=== PATIENT | female | born 1940 | race Caucasian/White ===

== ENCOUNTER 2017-09-01 19:26 | Inpatient (IN) | payer BC ==
[~2017-09-01] VITALS: Ht 157.5 cm; Wt 58.3 kg
[2017-09-01 19:56] VITALS: BP 167/99; PULSE 110; RESP 20; TEMP 97.9; O2SAT 99
[2017-09-01] MEDS ORDERED: APIX5TAB PO (20:00)
[2017-09-01] MEDS ORDERED: ALPR0.25 PO (20:00)
[2017-09-01] MEDS ORDERED: NORC5TAB PO (20:00)
[2017-09-01] MEDS ORDERED: CARV12.52 PO (20:00)
[2017-09-01] MEDS ORDERED: LEVO75TA3 PO (20:00)
--- NOTE | 2017-09-01 20:10 | PD ---
HPI Chief Complaint: Fall Time Seen by Provider: 20:04 Travel History International Travel<30 days: No Contact w/Intl Traveler<30days: No Traveled to known affect area: No History of Present Illness HPI The patient is a 77 year old female who presents to the [facility] emergency department with a history of reportedly falling prior to arrival at a local restaurant. The patient tripped on the andrea. The patient does not recall falling. The patient did have a few second loss of consciousness that was witnessed. The patient was briefly confused after hitting her head. The patient now reports having a headache and is developing ecchymosis around the left eye. The patient has a laceration above the left side of the upper lip. The patient also reports having left elbow pain and chest pain. The patient reports that the chest pain is in the center of her chest and is worse with movement or taking a deep breath. She denies hitting her chest. She denies having any chest pain earlier today. She denies having any prior history of coronary artery disease, however she does have a history of atrial fibrillation and is anticoagulated on Eliquis. The patient is visiting from [place]. She denies having any neck pain, numbness or tingling to her extremities or weakness of her extremities. On review of systems otherwise, she denies having any known recent fevers, cough or congestion, cough, congestion, shortness of breath, abdominal pain, vomiting, diarrhea, urinary symptoms, or other neurologic symptoms. [facility] Past Medical History Narrative Medical The patient's past medical history is significant for having diabetes in her past, however she reports that approximately 7 years ago she had a gastric sleeve Padmini significant weight loss which resolved with diabetes, history of hypertension, hyperlipidemia, atrial fibrillation, arthritis, and hypothyroid disorder. Hx Anticoagulant Therapy: Yes Cardiovascular Problems: Yes Past Surgical History Narrative Surgical The patient's past surgical history is significant for gastric sleeve, history of right hip replacement 3 months ago, history of left knee replacement. Social History Alcohol Use: No Tobacco Use: No Substance Use: No Allergies-Medications (Allergen,Severity, Reaction): Coded Allergies: Penicillins (Verified Allergy, Unknown, 09/01/17) erythromycin base (Verified Allergy, Unknown, 09/01/17) tetracycline (Verified Allergy, Unknown, 09/01/17) Reported Meds & Prescriptions Reported Meds & Active Scripts Active Reported Levothyroxine (Levothyroxine Sodium) 75 Mcg Tab 75 Mcg PO DAILY [place] 5-325 Tablet (Hydrocodone/Acetaminophen) 5 Mg-325 Mg Tablet 1 Tab PO BID Alprazolam 0.25 Mg Tab 0.25 Mg PO Q4H PRN Eliquis (Apixaban) 5 Mg Tab 5 Mg PO BID Carvedilol 12.5 Mg Tab 12.5 Mg PO DAILY Review of Systems Except as stated in HPI: all other systems reviewed are Neg General / Constitutional: No: Fever Eyes: No: Visual changes HENT: No: Headaches Cardiovascular: Positive: Chest Pain or Discomfort Respiratory: No: Cough, Shortness of Breath Gastrointestinal: No: Nausea, Vomiting, Diarrhea, Abdominal Pain Genitourinary: No: Dysuria Musculoskeletal: Positive: Myalgias, Arthralgias, Pain Skin: No Rash Neurologic: No: Weakness Psychiatric: No: Depression Endocrine: No: Polydipsia Hematologic/Lymphatic: No: Easy Bruising Physical Exam Narrative General: The patient is a well-developed well-nourished female in no acute distress. The patient is brought in on a back board in full c-spine immobilization by emergency services. Head and Neck exam: Head is normocephalic, evidence of trauma with periorbital ecchymosis and swelling noted. Patient reports tenderness on palpation along the superior orbital ridge. The patient also has an approximately 2 cm laceration along the upper lip on the left side. No increased facial bone mobility noted on palpation. Eyes: EOMI, pupils are equal round and reactive to light. Nose: Midline septum with pink mucous membranes Mouth: Dentition unremarkable. The patient is noted to have a through and through laceration with a small opening well approximated and the inner lip buccal mucosa left side that is approximately 1 cm. Moist mucus membranes. Posterior oropharynx is not erythematous. No tonsillar hypertrophy. Uvula midline. Airway patent. Neck: The patient is immobilized in a cervical collar. No tracheal deviation. The trachea appears midline. Cardiovascular: Irregularly irregular with rate control in the 80s, no murmurs, gallops, or rubs. Lungs: Clear to auscultation bilaterally. No wheezes, rhonchi, or rales. No chest wall tenderness to palpation. No erythema or ecchymosis noted. No crepitus , step off, or flail segment noted. Abdomen: Soft, without tenderness to palpation in all 4 quadrants of the abdomen. No guarding, rebound, or rigidity. No erythema or ecchymosis noted. Extremities: No instability or pain noted on pelvic rock. No clubbing, cyanosis , or edema. 2+ pulses in all 4 extremities. No extremity tenderness or deformity noted on palpation or passive/ active range of motion except in the area of interest, the left upper extremity. The patient reports pain with any attempt at flexion or extension of the left elbow. There is no palpable deformity or crepitus. Patient also has superficial pain that she reports along the dorsal forearm and hand where she has small superficial abrasions and lacerations noted. Back: The patient was log rolled off of the back board. No spinous process tenderness to palpation. No stepoff or crepitus noted. No costovertebral angle tenderness to palpation. No erythema or ecchymosis. Neurologic Exam: Cranial nerves 2-12 were intact on exam. Strength is 5/5 in all 4 extremities. No sensory deficits noted. Skin Exam: No rash noted. Intact skin that is warm and dry. Data Data Last Documented VS Vital Signs Date Time Temp Pulse Resp B/P (MAP) Pulse Ox O2 Delivery O2 Flow Rate FiO2 09/01/17 20:05 104 22 Room Air 09/01/17 19:56 97.9 167/99 (121) 99 Orders Orders Electrocardiogram (09/01/17 20:05) Complete Blood Count With Diff (09/01/17 20:05) Creatine Kinase (Cpk) (09/01/17 20:05) Ckmb (Isoenzyme) Profile (09/01/17 20:05) Troponin I (09/01/17 20:05) B-Type Natriuretic Peptide (09/01/17 20:05) Prothrombin Time / Inr (Pt) (09/01/17 20:05) Act Partial Throm Time (Ptt) (09/01/17 20:05) Hepatic Functional Panel (09/01/17 20:05) Urinalysis - C+S If Indicated (09/01/17 20:05) Chest, Single Ap (09/01/17 20:05) Ct Brain W/O Iv Contrast(Rout) (09/01/17 20:05) Pelvis, Ap Only (Routine) (09/01/17 20:05) Iv Access Insert/Monitor (09/01/17 20:05) Ecg Monitoring (09/01/17 20:05) Oximetry (09/01/17 20:05) I-Stat Profile (09/01/17 20:05) Type And Screen (09/01/17 20:05) Elbow, Complete (4 Vws) (09/01/17 20:09) Ice/Cold Pack (09/01/17 20:09) Ct Cerv Spine W/O Contrast (09/01/17 20:09) Ct Facial Bones W/O Iv Cont (09/01/17 20:09) Tbmd-Phf-Uoecjm (Booster) Inj (Boostrix (09/01/17 20:15) Wrist, Complete (Zeu7kgb) (09/01/17 20:55) Lidocai-Epi 1%-1:100,000 Inj (Xylocaine- (09/01/17 22:00) ^ Lab Follow Up (09/01/17 21:59) Phytonadione Inj (Vitamin K Inj) (09/01/17 22:00) Prothrombin Complex Conc Inj (Kcentra In (09/01/17 22:00) Admit Order (Ed Use Only) (09/01/17 22:01) Labs Laboratory Tests Test 09/01/17 20:12 White Blood Count 7.5 TH/MM3 Red Blood Count 3.75 MIL/MM3 Hemoglobin 11.6 GM/DL Bedside Hemoglobin 11.2 G/DL Hematocrit 34.4 % Bedside Hematocrit 33.0 % Mean Corpuscular Volume 91.8 FL Mean Corpuscular Hemoglobin 31.0 PG Mean Corpuscular Hemoglobin Concent 33.8 % Red Cell Distribution Width 15.1 % Platelet Count 211 TH/MM3 Mean Platelet Volume 8.0 FL Neutrophils (%) (Auto) 70.9 % Lymphocytes (%) (Auto) 17.3 % Monocytes (%) (Auto) 10.1 % Eosinophils (%) (Auto) 1.4 % Basophils (%) (Auto) 0.3 % Neutrophils # (Auto) 5.3 TH/MM3 Lymphocytes # (Auto) 1.3 TH/MM3 Monocytes # (Auto) 0.8 TH/MM3 Eosinophils # (Auto) 0.1 TH/MM3 Basophils # (Auto) 0.0 TH/MM3 CBC Comment DIFF FINAL Differential Comment Prothrombin Time 11.4 SEC Prothromb Time International Ratio 1.1 RATIO Activated Partial Thromboplast Time 29.7 SEC Bedside Sodium 140 MMOL/L Bedside Potassium 3.8 MMOL/L Bedside Chloride 107 MMOL/L Bedside Blood Urea Nitrogen 28 MG/DL Bedside Creatinine 1.1 MG/DL Bedside Glucose 115 MG/DL Total Bilirubin 0.4 MG/DL Direct Bilirubin 0.1 MG/DL Indirect Bilirubin 0.3 MG/DL Aspartate Amino Transf (AST/SGOT) 23 U/L Alanine Aminotransferase (ALT/SGPT) 18 U/L Alkaline Phosphatase 108 U/L Total Creatine Kinase 62 U/L Troponin I LESS THAN 0.02 NG/ML B-Type Natriuretic Peptide 85 PG/ML Total Protein 7.5 GM/DL Albumin 3.6 GM/DL MDM Medical Decision Making Medical Screen Exam Complete: Yes Emergency Medical Condition: Yes Medical Record Reviewed: Yes Differential Diagnosis Intracranial hemorrhage, versus cervical spine subluxation, versus cervical spine fracture, versus pneumothorax, versus rib fracture, versus chest wall contusion, versus elbow fracture versus dislocation, versus contusion Narrative Course During the course of the patient's emergency department visit, the patient's history, examination, and differential diagnosis were reviewed with the patient. The patient was placed on a sheet turner with oximetry and frequent blood pressure monitoring. The patient had IV access obtained and blood work sent for analysis. The patient had an EKG done on arrival that shows atrial fibrillation heart rate of 81, no acute ST segment elevation, QRS duration is 89 ms, QTC 489 ms. The patient was initially provided an update to her tetanus. The patient's laboratory studies were reviewed and remarkable for an i-STAT with creatinine that reveals a sodium of 140, potassium 3.8, chloride 107, BUN 28, glucose 115, hemoglobin 11.2, creatinine 1.1. Patient had a white count of 7.5. PT 11.4, PTT 29.7 Radiology studies were reviewed and remarkable for a CT scan of the brain that shows a small apparent 1.5 cm symmetric cortical hemorrhage right posterior temporal region. No extra-axial blood CT scan of the head and neck showed no acute traumatic injury. Chest x-ray, wrist x-ray, right elbow x-ray showed no acute traumatic injury other than left elbow has a small effusion. X-ray of the pelvis shows no acute fracture. A call was placed out to the trauma surgeon regarding this patient's case. As the patient has an isolated intracranial hemorrhage status post fall he recommended that neurosurgery admit the patient. I then spoke to Dr. Riley regarding this patient's case. He explains that he does not have admission privileges as he is a [employer], and he requests that the patient be admitted to the intensive care doctor service. I then spoke to Dr. Gomez regarding this patient's case. She did agree to admit the patient to the intensive care service. She did agree with the plan to start the patient on K Centra. K Centra and vitamin K were ordered by me. The nurse practitioner, Lara was consulted regarding wound cleansing and repair of the patient's lip laceration. The patient's results were discussed with the patient, including the plan of care. I explained that further testing and/ or monitoring is indicated based on the patient's history, examination, and/ or laboratory findings. Therefore, I recommended admission for additional evaluation. The patient expressed understanding and was agreeable with this plan. The patient was admitted to the hospital in guarded condition and sent to a bed under the care of the tours captain service. Critical Care Narrative Aggregate critical care time was 38 minutes. Time to perform other separately billable procedures was not included in the critical care time. My time did not include minutes spent treating any other patients simultaneously or on activities that did not directly contribute to the patient's treatment. The services I provided to this patient were to treat and/or prevent clinically significant deterioration that could result in: Progression of intracranial hemorrhage, versus respiratory failure from traumatic brain injury I provided critical care services requiring my management, as noted below: Chart data review, documentation time, medication orders and management, vital sign assessments/reviewing monitor data, ordering and reviewing lab tests, ordering and interpreting/reviewing x-rays and diagnostic studies, care of the patient and discussion of the patient with the admitting physicians. Physician Communication Physician Communication I spoke to Dr. Urbina, the trauma surgeon on-call at approximately 9:25 PM regarding this patient's case. He recommended that the patient be admitted to the neurosurgeon service as the patient appears to have an isolated intracranial hemorrhage. I then spoke to Dr. Riley, the neurosurgeon, at 21: 28. He recommended that the patient be admitted to the tours captain service and he will see the patient in the emergency department. I then spoke to Dr. Gomez who did agree to admit the patient for further evaluation and treatment at this time. Diagnosis Primary Impression: Intracranial hemorrhage Additional Impressions: Head injury Qualified Codes: S09.90XA - Unspecified injury of head, initial encounter Anticoagulated Admitting Information Admitting Physician Requests: Admit Rocio Cordero MD Sep 01, 2017 20:10
[2017-09-01] MEDS ORDERED: DIPHTH/TETANUS/ACEL PERTUSSIS (BOOSTER) 0.5 ML VIAL/PFS IM ONE (20:15)
[2017-09-01 20:45] LABS: AUTOMATED NEUTROPHIL # 5.3 TH/MM3 (1.8-7.7); BASOPHIL % 0.3 % (0.0-2.0); EOSINOPHIL # 0.1 TH/MM3 (0-0.4); EOSINOPHIL % 1.4 % (0.0-4.0); HEMATOCRIT 34.4 % (35.0-46.0); HEMOGLOBIN 11.6 GM/DL (11.6-15.3); LYMPH % 17.3 % (9.0-44.0); LYMPHOCYTE # 1.3 TH/MM3 (1.0-4.8); MEAN CELL VOLUME 91.8 FL (80.0-100.0); MEAN CORPUSCULAR HGB CONC 33.8 % (32.0-36.0); MONO % 10.1 % (0.0-8.0); MONOCYTE # 0.8 TH/MM3 (0-0.9); NEUT % 70.9 % (16.0-70.0); PLATELET COUNT 211 TH/MM3 (150-450); RED BLOOD COUNT 3.75 MIL/MM3 (4.00-5.30); RED CELL DISTRIBUTION WIDTH 15.1 % (11.6-17.2); WHITE BLOOD COUNT 7.5 TH/MM3 (4.0-11.0)
[2017-09-01 20:50] LABS: ALBUMIN 3.6 GM/DL (3.4-5.0); ALT (GPT) 18 U/L (10-53); AST (GOT) 23 U/L (15-37); DIRECT BILIRUBIN ADULT 0.1 MG/DL (0.0-0.2)
[2017-09-01 20:53] LABS: INTERNATIONAL NORMALIZED RATIO 1.1 RATIO; PROTHROMBIN TIME - PATIENT 11.4 SEC (9.8-11.6)
[2017-09-01 20:54] LABS: ALKALINE PHOSPHATASE 108 U/L (45-117); INDIRECT BILIRUBIN 0.3 MG/DL (0.0-0.8); TOTAL BILIRUBIN ADULT 0.4 MG/DL (0.2-1.0); TOTAL PROTEIN 7.5 GM/DL (6.4-8.2); TROPONIN I LESS THAN 0.02 NG/ML (0.02-0.05)
--- NOTE | 2017-09-01 21:24 | RADRPT ---
EXAM DATE/TIME: 09/01/2017 20:29 [facility] COMPARISON: No previous studies available for comparison. INDICATIONS : Trauma; fall. RADIATION DOSE: 66.34 CTDIvol (mGy) MEDICAL HISTORY : Cardiovascular disease. SURGICAL HISTORY : None. ENCOUNTER: Initial ACUITY: 1 day PAIN SCALE: 7/10 LOCATION: cranial TECHNIQUE: Multiple contiguous axial images were obtained of the head. Using automated exposure control and adj ustment of the mA and/or kV according to patient size, radiation dose was kept as low as reasonably a chievable to obtain optimal diagnostic quality images. DICOM format image data is available electro nically for review and comparison. FINDINGS: CEREBRUM: There is moderate central and cortical atrophy. There is an apparent cortical hemorrhage right poste rior temporal region. There are no extra-axial fluid collections appreciated. POSTERIOR FOSSA: The cerebellum and brainstem are intact. The 4th ventricle is midline. The cerebellopontine angle i s unremarkable. EXTRACRANIAL: The visualized portion of the orbits is intact. SKULL: The calvaria is intact. No evidence of skull fracture. CONCLUSION: Small apparent 1.5 symmetr cortical hemorrhage right posterior temporal region. There is no extra-axial blood. Freeman Manzano MD FACR on September 01, 2017 at 21:19 Board Certified Radiologist. This report was verified electronically.
--- NOTE | 2017-09-01 21:25 | RADRPT ---
EXAM DATE/TIME: 09/01/2017 20:29 [facility] COMPARISON: No previous studies available for comparison. INDICATIONS : Trauma; fall. RADIATION DOSE: 16.48 CTDIvol (mGy) MEDICAL HISTORY : Cardiovascular disease. SURGICAL HISTORY : None. ENCOUNTER: Initial ACUITY: 1 day PAIN SCALE: 7/10 LOCATION: neck TECHNIQUE: Volumetric scanning of the cervical spine was performed. Multiplanar reconstructions in the sagittal, coronal and oblique axial planes were performed. Using automated exposure control and adjustment o f the mA and/or kV according to patient size, radiation dose was kept as low as reasonably achievable to obtain optimal diagnostic quality images. DICOM format image data is available electronically f or review and comparison. FINDINGS: VERTEBRAE: Normal vertebral body height. ALIGNMENT: No evidence of subluxation. C2-C3: The bony spinal canal is normal in size. No evidence of disc bulge or herniation. The neural forami na are bilaterally patent. C3-C4: Moderate facet disease is present mild spinal stenosis or fracture C4-C5: The bony spinal canal is normal in size. No evidence of disc bulge or herniation. Moderate facet di sease on the right neural foramen encroachment. C5-C6: Moderate uncinate ridging moderate spinal stenosis and bilateral neural foramina encroachment worse o n the right C6-C7: The bony spinal canal is normal in size. No evidence of disc bulge or herniation. The neural forami na are bilaterally patent. C7-T1: The bony spinal canal is normal in size. No evidence of disc bulge or herniation. The neural forami na are bilaterally patent. CONCLUSION: Degenerative changes worse at C5-C6. No fracture Freeman Manzano MD FACR on September 01, 2017 at 21:21 Board Certified Radiologist. This report was verified electronically.
--- NOTE | 2017-09-01 21:26 | RADRPT ---
EXAM DATE/TIME: 09/01/2017 20:29 [facility] COMPARISON: No previous studies available for comparison. INDICATIONS : Trauma; fall. RADIATION DOSE: 21.96 CTDIvol (mGy) MEDICAL HISTORY : Cardiovascular disease. SURGICAL HISTORY : None. ENCOUNTER: Initial ACUITY: 1 day PAIN SCORE: 7/10 LOCATION: facial TECHNIQUE: Volumetric scanning of the facial bones was performed. Using automated exposure contr ol and adjustment of the mA and/or kV according to patient size, radiation dose was kept as low as re asonably achievable to obtain optimal diagnostic quality images. DICOM format image data is availabl e electronically for review and comparison. FINDINGS: ORBITS: The orbital and infraorbital osseous structures are intact. The retroconal structures frederick ve a normal configuration. No radiopaque foreign bodies are seen. NASAL BONE: The nasal bone and maxillary spine are intact ZYGOMATIC ARCHES: Symmetric without evidence of fracture. SINUSES: The maxillary, ethmoid and frontal sinuses are intact. No air-fluid levels seen. NASAL CAVITY: The nasal septum is intact and midline. The lacrimal ducts are intact. SOFT TISSUES: No radiopaque foreign bodies seen. No soft-tissue swelling is seen. INTRACRANIAL: No intracranial air seen. CRIBIFORM PLATE: Grossly intact. CONCLUSION: Negative for fracture Freeman Manzano MD FACR on September 01, 2017 at 21:23 Board Certified Radiologist. This report was verified electronically.
--- NOTE | 2017-09-01 21:30 | RADRPT ---
EXAM DATE/TIME: 09/01/2017 21:06 [facility] COMPARISON: No previous studies available for comparison. INDICATIONS : Right wrist pain post fall. MEDICAL HISTORY : Cardiovascular disease. SURGICAL HISTORY : None. ENCOUNTER: Initial ACUITY: 1 day PAIN SCORE: 5/10 LOCATION: Right wrist. FINDINGS: Tricompartment degenerative changes are evident without fracture.. Bony osteopenia. CONCLUSION: Significant degenerative changes, no fracture Freeman Manzano MD FACR on September 01, 2017 at 21:26 Board Certified Radiologist. This report was verified electronically.
--- NOTE | 2017-09-01 21:33 | RADRPT ---
EXAM DATE/TIME: 09/01/2017 20:44 [facility] COMPARISON: No previous studies available for comparison. INDICATIONS : Chest pain after fall today. MEDICAL HISTORY : Cardiovascular disease. SURGICAL HISTORY : None. ENCOUNTER: Initial ACUITY: 1 day PAIN SCORE: 10/10 LOCATION: Bilateral chest FINDINGS: A single view of the chest demonstrates the lungs to be symmetrically aerated without evidence of mas s, infiltrate or effusion. The cardiomediastinal contours are unremarkable. Osseous structures are intact. CONCLUSION: No acute disease. Freeman Manzano MD FACR on September 01, 2017 at 21:31 Board Certified Radiologist. This report was verified electronically.
--- NOTE | 2017-09-01 21:42 | RADRPT ---
EXAM DATE/TIME: 09/01/2017 20:53 [facility] COMPARISON: No previous studies available for comparison. INDICATIONS : Left elbow pain post fall. MEDICAL HISTORY : Cardiovascular disease. SURGICAL HISTORY : None. ENCOUNTER: Initial ACUITY: 1 day PAIN SCORE: 10/10 LOCATION: Left elbow. FINDINGS: Bones are osteopenic. Small joint effusion is evident. Alignment anatomic. Fracture is not appreci ated in spite of small joint effusion. CONCLUSION: Degenerative changes with small joint effusion. I cannot see the fracture. Freeman Manzano MD FACR on September 01, 2017 at 21:39 Board Certified Radiologist. This report was verified electronically.
--- NOTE | 2017-09-01 21:43 | RADRPT ---
EXAM DATE/TIME: 09/01/2017 20:49 [facility] COMPARISON: No previous studies available for comparison. INDICATIONS : Pelvis pain post fall. MEDICAL HISTORY : Cardiovascular disease. SURGICAL HISTORY : Right hip replacement. ENCOUNTER: Initial ACUITY: 1 day PAIN SCORE: 3/10 LOCATION: Bilateral pelvis FINDINGS: Total hip on the right. Degenerative changes about the left hip. Anatomic alignment. No fracture. Moderate vascular calcifications evident. CONCLUSION: Negative for fracture Freeman Manzano MD FACR on September 01, 2017 at 21:40 Board Certified Radiologist. This report was verified electronically.
[2017-09-01] MEDS ORDERED: PROTHROMBIN COMPLEX CONC INJ 1,500 UNITS in SYRINGE/BAG 1 EA IV ONE (22:00)
[2017-09-01] MEDS ORDERED: LIDOCAINE 1%/EPINEPHrine 1:100,000 SOLN 20 ML VIAL INFIL ONE (22:00)
[2017-09-01] MEDS ORDERED: PHYTONADIONE INJ 10 MG in SODIUM CHLORIDE 0.9% INJ 50 ML IV ONE (22:00)
--- NOTE | 2017-09-01 22:05 | HHI.HP ---
[facility] Service Critical Care Medicine Primary Care Physician Unknown Admission Diagnosis intracranial hemorrhage s/p fall, anticoagulated on eliquis Diagnosis: (1) TBI (traumatic brain injury) Diagnosis: Principal (2) Anticoagulated Diagnosis: Secondary (3) Fall (4) HTN (hypertension) Diagnosis: Secondary (5) Hypothyroidism Diagnosis: Secondary Travel History International Travel<30 Days: No Contact w/Intl Traveler <30 Da: No Traveled to Known Affected Are: No History of Present Illness 77 year-old female with past medical history of atrial fibrillation on chronic anticoagulation with Eliquis, hypertension, hypothyroidism, osteoarthritis who presented to [facility] emergency department after a fall in which she reportedly tripped over some uneven andrea. She fell forward and hit her face. There was loss of consciousness that was reportedly witnessed by her . She had some confusion that subsequently resolved. CT brain showed a 1.5 cm R temporal lobe intraparenchymal hemorrhage. She has a left upper lip laceration that has been repaired in the emergency department. She presented complaining of right wrist pain and left elbow pain. X-rays were negative for acute injury. Dr. Cordero discussed with trauma surgery who recommended admission to neurosurgery. Dr. Cordero discussed with Dr Riley who states he will see patient in consultation but recommends admission by general dentist/owner. Patient is requesting pain meds for her chronic arthritis. Her last dose of Eliquis was 9 AM on 09/01/17. She received Kcentra 25 units/kg in the ED. Review of Systems Constitutional: DENIES: Fever Respiratory: DENIES: Cough, Wheezing Cardiovascular: COMPLAINS OF: Chest pain, DENIES: Syncope Gastrointestinal: DENIES: Black stools, Bloody stools, Nausea, Vomiting Musculoskeletal: COMPLAINS OF: Joint pain, Stiffness, Neck pain (chronic with chronic decreased ROM of neck. ) Integumentary: DENIES: Rash Hematologic/lymphatic: COMPLAINS OF: Bruising Neurologic: DENIES: Headache Psychiatric: COMPLAINS OF: Confusion (resolved) Past Family Social History Allergies: Coded Allergies: Penicillins (Verified Allergy, Unknown, 09/01/17) erythromycin base (Verified Allergy, Unknown, 09/01/17) tetracycline (Verified Allergy, Unknown, 09/01/17) Past Medical History Hypothyroidism Hypertension Atrial fibrillation on chronic anticoagulation with Eliquis Osteoarthritis History of obesity now resolved s/p gastric sleeve Previously diabetes mellitus but this resolved after significant weight loss Past Surgical History Gastric sleeve Left knee replacement Right hip replacement 3 months ago Blepharoplasty Cataract removal Reported Medications Eliquis 5 mill grams by mouth twice a day Carvedilol 12.5 mill grams by mouth daily Hydrocodone 5/325 one by mouth twice a day Xanax 0.5 mill grams by mouth every 4 hours as needed for anxiety Synthroid 75 g by mouth daily Family History Father at age 65 from myocardial infarction Mother in the hospital at age 76 following complications from narcotic analgesia for severe arthritis Social History Lifetime nonsmoker Rarely drinks alcohol No illicit drug use Ambulates with a cane She is visiting [facility] in a two-week timeshare. She lives in [facility] Her is 81 years old and she states he has dementia. Physical Exam Vital Signs Vital Signs Date Time Temp Pulse Resp B/P (MAP) Pulse Ox O2 Delivery O2 Flow Rate FiO2 09/01/17 19:56 97.9 110 20 167/99 (121) 99 Physical Exam GENERAL: Elderly female who is in some ER come into position on ED stretcher. SKIN: Warm and dry. Dried blood on knuckles left hand. Laceration over left eyebrow. HEAD: Normocephalic. EYES: Pupils equal and round, 2mm and sluggishly reactive bilaterally. . No scleral icterus. No injection or drainage. ENT: No nasal bleeding or discharge. Mucous membranes pink and moist. Laceration above left upper lip just above and following upper vermilion border with sutures c/d/i. NECK: Trachea midline. No JVD. CARDIOVASCULAR: irregularly irregular. No murmurs rubs or gallops. RESPIRATORY: No accessory muscle use. Clear to auscultation. Breath sounds equal bilaterally. On RA. GASTROINTESTINAL: Abdomen soft, non-tender, nondistended. Bowel sounds present. MUSCULOSKELETAL: Extremities without clubbing, cyanosis, or edema. Deformities in fingers of bilateral hands consistent with osteoarthritis NEUROLOGICAL: Awake and alert, oriented to self, hospital. No obvious cranial nerve deficits. Raises arms up, no pronator drift. Motor grossly within normal limits. Five out of 5 muscle strength in the arms and legs. Normal speech. Laboratory Laboratory Tests Test 09/01/17 20:12 White Blood Count 7.5 Red Blood Count 3.75 Hemoglobin 11.6 Bedside Hemoglobin 11.2 Hematocrit 34.4 Bedside Hematocrit 33.0 Mean Corpuscular Volume 91.8 Mean Corpuscular Hemoglobin 31.0 Mean Corpuscular Hemoglobin Concent 33.8 Red Cell Distribution Width 15.1 Platelet Count 211 Mean Platelet Volume 8.0 Neutrophils (%) (Auto) 70.9 Lymphocytes (%) (Auto) 17.3 Monocytes (%) (Auto) 10.1 Eosinophils (%) (Auto) 1.4 Basophils (%) (Auto) 0.3 Neutrophils # (Auto) 5.3 Lymphocytes # (Auto) 1.3 Monocytes # (Auto) 0.8 Eosinophils # (Auto) 0.1 Basophils # (Auto) 0.0 CBC Comment DIFF FINAL Differential Comment Prothrombin Time 11.4 Prothromb Time International Ratio 1.1 Activated Partial Thromboplast Time 29.7 Bedside Sodium 140 Bedside Potassium 3.8 Bedside Chloride 107 Bedside Blood Urea Nitrogen 28 Bedside Creatinine 1.1 Bedside Glucose 115 Total Bilirubin 0.4 Direct Bilirubin 0.1 Indirect Bilirubin 0.3 Aspartate Amino Transf (AST/SGOT) 23 Alanine Aminotransferase (ALT/SGPT) 18 Alkaline Phosphatase 108 Total Creatine Kinase 62 Troponin I LESS THAN 0.02 B-Type Natriuretic Peptide 85 Total Protein 7.5 Albumin 3.6 Result Diagram: 09/01/172011 Caprini VTE Risk Assessment Caprini VTE Risk Assessment: Mod/High Risk (score >= 2) VTE Pharm Contraindication: Hemorrhage (intracerebral) Caprini Risk Assessment Model Point Value = 1 Point Value = 2 Point Value = 3 Point Value = 5 Age 41-60 Minor surgery BMI > 25 kg/m2 Swollen legs Varicose veins or History of unexplained or recurrent spontaneous Oral contraceptives or hormone replacement Sepsis (< 1 month) Serious lung disease, including pneumonia (< 1 month) Abnormal pulmonary function Acute myocardial infarction Congestive heart failure (< 1 month) History of inflammatory bowel disease Medical patient at bed rest Age 61-74 Arthroscopic surgery Major open surgery (> 45 min) Laparoscopic surgery (> 45 min) Malignancy Confined to bed (> 72 hours) Immobilizing plaster cast Central venous access Age >= 75 History of VTE Family history of VTE Factor V Leiden Prothrombin [id number] Lupus anticoagulant Anticardiolipin antibodies Elevated serum homocysteine Heparin-induced thrombocytopenia Other congenital or acquired thrombophilia Stroke (< 1 month) Elective arthroplasty Hip, pelvis, or leg fracture Acute spinal cord injury (< 1 month) Prophylaxis Regimen Total Risk Factor Score Risk Level Prophylaxis Regimen 0-1 Low Early ambulation 2 Moderate Order ONE of the following: *Sequential Compression Device (SCD) *Heparin 5000 units SQ BID 3-4 Higher Order ONE of the following medications: *Heparin 5000 units SQ TID *Enoxaparin/Lovenox 40 mg SQ daily (WT < 150 kg, CrCl > 30 mL/min) *Enoxaparin/Lovenox 30 mg SQ daily (WT < 150 kg, CrCl > 10-29 mL/min) *Enoxaparin/Lovenox 30 mg SQ BID (WT < 150 kg, CrCl > 30 mL/min) AND/OR *Sequential Compression Device (SCD) 5 or more Highest Order ONE of the following medications: *Heparin 5000 units SQ TID (Preferred with Epidurals) *Enoxaparin/Lovenox 40 mg SQ daily (WT < 150 kg, CrCl > 30 mL/min) *Enoxaparin/Lovenox 30 mg SQ daily (WT < 150 kg, CrCl > 10-29 mL/min) *Enoxaparin/Lovenox 30 mg SQ BID (WT < 150 kg, CrCl > 30 mL/min) AND *Sequential Compression Device (SCD) Assessment and Plan Assessment and Plan NEURO: 1.5 cm hemorrhage R temporal lobe w/o mass effect Fall Degenerative disease C spine Anxiety Osteoarthritis with chronic pain Neurochecks every hour Repeat CT brain in am 09/02. Hold Eliquis Target SBP <160 as per below. Hold Xanax 0.25 mg by mouth every 4 hours (home med ) for now Neurosurgery consulted; Dr. Riley following. SKIN: Lip laceration - sutured in ED 09/01. Remove sutures in 3-5 days. RESP: On Room air. IS q1 hour awake CV: Chronic Atrial fibrillation Hypertension Continue Coreg 12.5 mg by mouth daily Telemetery monitoring. Labetalol/hydralazine as needed for systolic blood pressure greater than 160. Cardene if needed. Troponin negative on admission. Will trend. GI: s/p gastric sleeve for morbid obesity Clear liquid diet and advance as appropriate in a.m. if repeat CT stable. Patient feels she may need mechanical soft due to lip discomfort. FEN/RENAL: Monitor intake and output. Monitor electrolytes. Replace electrolytes as indicated per ICU electrolyte replacement protocol. ID: No leukocytosis or fever. Monitor for signs and symptoms of infection. HEME: On chronic coagulation with Eliquis for atrial fibrillation Hold Eliquis due to intracerebral hemorrhage. Last dose 9 am 09/01. Received Kcentra 25 units per KG 09/01. ENDO: Hypothyroidism TSH is normal on admission. Continue Synthroid 75 g by mouth daily PROPH: SCDs for DVT prophylaxis. No pharmacologic DVT prophylaxis due to intracerebral hemorrhage. Famotidine IV for stress ulcer prophylaxis ACCESS: Peripheral IV providing adequate access at this time Level III H&P Problem Qualifiers (1) HTN (hypertension): Qualified Codes: I10 - Essential (primary) hypertension Monserrat Gomez MD Sep 01, 2017 22:05
[2017-09-01] MEDS ORDERED: LIDOCAINE 1%/EPINEPHrine 1:100,000 SOLN 30 ML VIAL ONE (22:16)
[2017-09-01 22:24] VITALS: BP 138/79; PULSE 103; RESP 20; O2SAT 99
[2017-09-01 22:25] VITALS: RESP 20; O2SAT 99
--- NOTE | 2017-09-01 22:43 | PD ---
Physical Exam Date Seen by Provider: Sep 01, 2017 Time Seen by Provider: 22:42 Narrative I was asked by Dr. Cordero to repair a laceration to the patient's upper lip. Please see her documentation for full history and physical. Data Data Last Documented VS Vital Signs Date Time Temp Pulse Resp B/P (MAP) Pulse Ox O2 Delivery O2 Flow Rate FiO2 09/01/17 20:05 104 22 Room Air 09/01/17 19:56 97.9 167/99 (121) 99 Orders Orders Electrocardiogram (09/01/17 20:05) Complete Blood Count With Diff (09/01/17 20:05) Creatine Kinase (Cpk) (09/01/17 20:05) Ckmb (Isoenzyme) Profile (09/01/17 20:05) Troponin I (09/01/17 20:05) B-Type Natriuretic Peptide (09/01/17 20:05) Prothrombin Time / Inr (Pt) (09/01/17 20:05) Act Partial Throm Time (Ptt) (09/01/17 20:05) Hepatic Functional Panel (09/01/17 20:05) Urinalysis - C+S If Indicated (09/01/17 20:05) Chest, Single Ap (09/01/17 20:05) Ct Brain W/O Iv Contrast(Rout) (09/01/17 20:05) Pelvis, Ap Only (Routine) (09/01/17 20:05) Iv Access Insert/Monitor (09/01/17 20:05) Ecg Monitoring (09/01/17 20:05) Oximetry (09/01/17 20:05) I-Stat Profile (09/01/17 20:05) Type And Screen (09/01/17 20:05) Elbow, Complete (4 Vws) (09/01/17 20:09) Ice/Cold Pack (09/01/17 20:09) Ct Cerv Spine W/O Contrast (09/01/17 20:09) Ct Facial Bones W/O Iv Cont (09/01/17 20:09) Whea-Arl-Rjoovz (Booster) Inj (Boostrix (09/01/17 20:15) Wrist, Complete ([id number]) (09/01/17 20:55) Lidocai-Epi 1%-1:100,000 Inj (Xylocaine- (09/01/17 22:00) ^ Lab Follow Up (09/01/17 21:59) Phytonadione Inj (Vitamin K Inj) (09/01/17 22:00) Prothrombin Complex Conc Inj (Kcentra In (09/01/17 22:00) Admit Order (Ed Use Only) (09/01/17 22:01) Labs Laboratory Tests Test 09/01/17 20:12 White Blood Count 7.5 TH/MM3 Red Blood Count 3.75 MIL/MM3 Hemoglobin 11.6 GM/DL Bedside Hemoglobin 11.2 G/DL Hematocrit 34.4 % Bedside Hematocrit 33.0 % Mean Corpuscular Volume 91.8 FL Mean Corpuscular Hemoglobin 31.0 PG Mean Corpuscular Hemoglobin Concent 33.8 % Red Cell Distribution Width 15.1 % Platelet Count 211 TH/MM3 Mean Platelet Volume 8.0 FL Neutrophils (%) (Auto) 70.9 % Lymphocytes (%) (Auto) 17.3 % Monocytes (%) (Auto) 10.1 % Eosinophils (%) (Auto) 1.4 % Basophils (%) (Auto) 0.3 % Neutrophils # (Auto) 5.3 TH/MM3 Lymphocytes # (Auto) 1.3 TH/MM3 Monocytes # (Auto) 0.8 TH/MM3 Eosinophils # (Auto) 0.1 TH/MM3 Basophils # (Auto) 0.0 TH/MM3 CBC Comment DIFF FINAL Differential Comment Prothrombin Time 11.4 SEC Prothromb Time International Ratio 1.1 RATIO Activated Partial Thromboplast Time 29.7 SEC Bedside Sodium 140 MMOL/L Bedside Potassium 3.8 MMOL/L Bedside Chloride 107 MMOL/L Bedside Blood Urea Nitrogen 28 MG/DL Bedside Creatinine 1.1 MG/DL Bedside Glucose 115 MG/DL Total Bilirubin 0.4 MG/DL Direct Bilirubin 0.1 MG/DL Indirect Bilirubin 0.3 MG/DL Aspartate Amino Transf (AST/SGOT) 23 U/L Alanine Aminotransferase (ALT/SGPT) 18 U/L Alkaline Phosphatase 108 U/L Total Creatine Kinase 62 U/L Troponin I LESS THAN 0.02 NG/ML B-Type Natriuretic Peptide 85 PG/ML Total Protein 7.5 GM/DL Albumin 3.6 GM/DL MDM Supervised Visit with TITI: No Procedures Procedure Narrative LACERATION LOCATION: Upper lip through and through LENGTH: 2 cm NUMBER OF STITCHES/SARAH: 6 simple interrupted sutures REPAIR: The area of the laceration was prepped with Betadine and sterilely draped. The laceration was infiltrated with 1% lidocaine with epinephrine. The wound was copiously irrigated and explored without evidence of foreign body, tendon injury or neurovascular injury. The wound was closed using 5-0 Vicryl. This was a 2 layer repair. A sterile dressing was applied. The patient was advised to keep the dressing clean and dry. Patient tolerated the procedure well. Diagnosis Primary Impression: Intracranial hemorrhage Additional Impressions: Head injury Qualified Codes: S09.90XA - Unspecified injury of head, initial encounter Anticoagulated Lara Gramajo Sep 01, 2017 22:43
[2017-09-01] MEDS ORDERED: ONDANSETRON HCL 4 MG/2 ML VIAL IV PUSH ONE (23:45)
[2017-09-02] VITALS (17 sets, daily range): BP systolic 112–190; BP diastolic 65–86; PULSE 67–105; RESP 14–21; TEMP 98.4; O2SAT 95–98
--- NOTE | 2017-09-02 00:04 | MB ---
cc: Esequiel NDIAYE DATE: 09/01/2017 CHIEF COMPLAINT: Fall. HISTORY OF PRESENT ILLNESS: This is a 77-year-old female patient who was at a restaurant when she suddenly had a fall. She reports striking her head and she had a loss of consciousness. The patient does not remember the whole incident at the present time. The patient underwent evaluation in the emergency room, was found to have a cerebral hemorrhage, and neurosurgery consult was placed. In addition to her injury, the patient complains of right hand pain, left elbow pain and chest pain. It is remarkable that the patient has a history of atrial fibrillation and takes Eliquis because of this. The patient denies any headaches. She also complains of moderate discomfort in her neck. PAST MEDICAL HISTORY: Remarkable for her atrial fibrillation, hyperlipidemia, history of hypertension, and osteoarthritis. PAST SURGICAL HISTORY: Remarkable for gastric sleeve, history of right hip replacement 3 months ago, and history of left knee replacement that is old. SOCIAL HISTORY: Reveals that she does not use alcohol, tobacco, or illegal drugs. ALLERGIES: INCLUDE PENICILLIN, ERYTHROMYCIN, TETRACYCLINE. MEDICATIONS: Include levothyroxine, [place], alprazolam, Eliquis and carvedilol. REVIEW OF SYSTEMS: Remarkable for the above history. PHYSICAL EXAMINATION: VITAL SIGNS: Temperature of 97.9, pulse of 110, respirations 20, blood pressure 167/99. HEENT: Shows a left periorbital ecchymosis and an abrasion over the upper lip with a small laceration along the upper lip. NECK: In a trauma collar. Carotids are palpable bilaterally. CHEST: Symmetric. LUNGS: Clear. ABDOMEN: Soft. HEART: Regular rhythm with normal heart sounds. EXTREMITIES: Clear except for evidence of surgical procedures in the knee and the right hip. NEUROLOGIC: The patient is alert and awake. She follows commands well. She has mild retrograde amnesia. Her speech is fluent. Her affect is normal. She is oriented x3. Cranial nerves 2-12 are intact. Motor strength is 5+/5. Sensory exam is intact to touch. Deep tendon reflexes are 1+ in the upper and lower extremities and trace in the lower extremities. IMAGING: Review of a CT scan of the brain shows evidence of a small hemorrhage in the right posterior temporoparietal area. No significant mass effect is seen. CT scan of the cervical spine shows significant degenerative changes. No evidence of fracture is seen. OVERALL IMPRESSION: Traumatic brain injury with a small intracerebral hematoma secondary to a fall. PLAN: Admit the patient to the intensive care unit, place on neurological observation. Should have a repeat CT in the morning. Would replace the collar with a [place] J collar to try to help her neck pain at the present time. Esequiel DELATORRE/EDWARDO , 10:25 PM , 12:03 AM MTDNaveed
[2017-09-02 00:26] LABS: BACTERIA, URINE RARE /hpf; BILIRUBIN, URINE NEG (NEG); BLOOD, URINE NEG (NEG); GLUCOSE,URINE NEG (NEG); KETONE, URINE TRACE mg/dL (NEG); MUCUS URINE FEW /lpf (OCC); NITRITE,URINE NEG (NEG); URINE COLOR LIGHT-YELLOW (YELLW/STRAW); URINE LEUKOCYTE ESTERASE TRACE (NEG)
[2017-09-02] MEDS ORDERED: LACTULOSE SYRUP 20 GM/30 ML CUP PO PRN (01:45)
[2017-09-02] MEDS ORDERED: MISCELLANEOUS NURSING INFORMATION XX SCH (01:45)
[2017-09-02] MEDS ORDERED: SODIUM CHLORIDE 0.9% FLUSH 10 ML FLUSH IV FLUSH PRN (01:45)
[2017-09-02] MEDS ORDERED: CHLORHEXIDINE GLUCONATE 2 % 1 PACK (2 CLOTHS) TOP PRN (01:45)
[2017-09-02] MEDS ORDERED: MAGNESIUM HYDROXIDE SUSP 30 ML CUP PO PRN (01:45)
[2017-09-02] MEDS ORDERED: ACETAMINOPHEN 325 MG TAB PO PRN (01:45)
[2017-09-02] MEDS ORDERED: SENNOSIDES 8.6 MG TAB PO PRN (01:45)
[2017-09-02] MEDS ORDERED: BISACODYL 10 MG SUPP RECTAL PRN (01:45)
[2017-09-02] MEDS ORDERED: MORPHINE SULFATE 2 MG/ML INJ IV PRN (02:00)
[2017-09-02] MEDS: SODIUM CHLOR 0.9% 1000 ML INJ 1,000 ML IV SCH ×2 (02:38→20:55)
[2017-09-02] MEDS: CHLORHEXIDINE GLUCONATE 2 % 1 PACK (2 CLOTHS) TOP SCH (04:00)
[2017-09-02] MEDS ORDERED: ACETAMINOPHEN/HYDROcodone 325 MG/5 MG TAB PO PRN (04:15)
[2017-09-02] MEDS ORDERED: niCARdipine INJ 25 MG in SODIUM CHLOR 0.9% 250 ML INJ 240 ML IV PRN (04:30)
[2017-09-02] MEDS ORDERED: LABETALOL HCL 100 MG/20 ML VIAL IV PUSH PRN (04:30)
[2017-09-02 05:36] LABS: BICARBONATE 21.1 MEQ/L (21.0-32.0); BLOOD UREA NITROGEN 24 MG/DL (7-18); CALCIUM 9.3 MG/DL (8.5-10.1); CHLORIDE 108 MEQ/L (98-107); CREATININE 0.94 MG/DL (0.50-1.00); GLOMERULAR FILTRATION RATE 58 ML/MIN (>89); GLUCOSE,RANDOM 125 MG/DL (74-106); MAGNESIUM 1.5 MG/DL (1.5-2.5); PHOSPHORUS 3.7 MG/DL (2.5-4.9); SODIUM (NA) 140 MEQ/L (136-145)
[2017-09-02 05:47] LABS: TROPONIN I LESS THAN 0.02 NG/ML (0.02-0.05)
[2017-09-02] MEDS: SODIUM CHLORIDE 0.9% FLUSH 10 ML FLUSH IV FLUSH SCH ×2 (11:07→20:55)
[2017-09-02] MEDS: LEVOTHYROXINE SODIUM 75 MCG TAB PO SCH (11:07)
[2017-09-02] MEDS: CARVEDILOL 12.5 MG TAB PO SCH (11:08)
[2017-09-02] MEDS: FAMOTIDINE 20 MG/2 ML VIAL IV PUSH SCH ×2 (11:08→20:57)
[2017-09-02] MEDS: DOCUSATE SODIUM 50 MG/SENNA 8.6 MG TAB PO SCH ×2 (11:09→20:57)
[2017-09-02] MEDS: ACETAMINOPHEN/HYDROcodone 325 MG/5 MG TAB PO PRN (11:57)
[2017-09-02] MEDS ORDERED: ACETAMINOPHEN/HYDROcodone 325 MG/7.5 MG TAB PO ONE (17:15)
--- NOTE | 2017-09-02 17:18 | HHI.CCPN ---
Subjective Remarks/Hospital Course 09/01: 77 year-old female with past medical history of atrial fibrillation on chronic anticoagulation with Eliquis, hypertension, hypothyroidism, osteoarthritis who presented to [facility] emergency department after a fall in which she reportedly tripped over some uneven andrea. She fell forward and hit her face. There was loss of consciousness that was reportedly witnessed by her . She had some confusion that subsequently resolved. CT brain showed a 1.5 cm R temporal lobe intraparenchymal hemorrhage. She has a left upper lip laceration that has been repaired in the emergency department. She presented complaining of right wrist pain and left elbow pain. X-rays were negative for acute injury. Dr. Cordero discussed with trauma surgery who recommended admission to neurosurgery. Dr. Cordero discussed with Dr Riley who states he will see patient in consultation but recommends admission by high school combination teacher. Patient is requesting pain meds for her chronic arthritis. Her last dose of Eliquis was 9 AM on 09/01/17. She received Kcentra 25 units/kg in the ED. 09/02: Appears comfortable in ER stretcher. Not in any acute distress. Complains of significant upper extremity and neck pain. Denies any visual disturbance or focal weakness involving extremities. Moving all 4 extremities. Still awaiting head CT. Objective Vital Signs Date Time Temp Pulse Resp B/P (MAP) Pulse Ox O2 Delivery O2 Flow Rate FiO2 09/02/17 14:58 79 18 147/69 (95) 98 Room Air 09/02/17 14:26 21 09/01/17 19:56 97.9 Intake and Output 09/02/17 09/02/17 09/03/17 08:00 16:00 00:00 Intake Total 60 ml Output Total 400 ml Balance -340 ml Result Diagram: 09/01/17201109/02/17 9610 Objective Remarks GENERAL: Elderly female who is in some ER come into position on ED stretcher. SKIN: Warm and dry. Dried blood on knuckles left hand. Laceration over left eyebrow. HEAD: Normocephalic. EYES: Pupils equal and round, 2mm and sluggishly reactive bilaterally. . No scleral icterus. No injection or drainage. ENT: No nasal bleeding or discharge. Mucous membranes pink and moist. Laceration above left upper lip just above and following upper vermilion border with sutures c/d/i. NECK: Trachea midline. No JVD. CARDIOVASCULAR: irregularly irregular. No murmurs rubs or gallops. RESPIRATORY: No accessory muscle use. Clear to auscultation. Breath sounds equal bilaterally. On RA. GASTROINTESTINAL: Abdomen soft, non-tender, nondistended. Bowel sounds present. MUSCULOSKELETAL: Extremities without clubbing, cyanosis, or edema. Deformities in fingers of bilateral hands consistent with osteoarthritis NEUROLOGICAL: Awake and alert, oriented to self, hospital. No obvious cranial nerve deficits. Raises arms up, no pronator drift. Motor grossly within normal limits. Five out of 5 muscle strength in the arms and legs. Normal speech. A/P Assessment and Plan NEURO: 1.5 cm hemorrhage R temporal lobe w/o mass effect Fall Degenerative disease C spine Anxiety Osteoarthritis with chronic pain Neurochecks every hour Awaiting Repeat CT brain since am 09/02 - changed to stat CT head. Holding Eliquis Target SBP <160 as per below. Hold Xanax 0.25 mg by mouth every 4 hours (home med ) for now Neurosurgery consulted; Dr. Law to take over from Dr. Riley, d/w Ke Aj to f/u for Dr. Law. SKIN: Lip laceration - sutured in ED 09/01. Remove sutures in 3-5 days. RESP: On Room air. IS q1 hour awake CV: Chronic Atrial fibrillation Hypertension Continue Coreg 12.5 mg by mouth daily Telemetery monitoring. Labetalol/hydralazine as needed for systolic blood pressure greater than 160. Cardene if needed. Troponin negative on admission. Will trend. GI: s/p gastric sleeve for morbid obesity Advance diet as tolerated. Patient feels she may need mechanical soft due to lip discomfort. FEN/RENAL: Monitor intake and output. Monitor electrolytes. Replace electrolytes as indicated per ICU electrolyte replacement protocol. ID: No leukocytosis or fever. Monitor for signs and symptoms of infection. HEME: On chronic coagulation with Eliquis for atrial fibrillation Hold Eliquis due to intracerebral hemorrhage. Last dose 9 am 09/01. Received Kcentra 25 units per KG 09/01. ENDO: Hypothyroidism TSH is normal on admission. Continue Synthroid 75 g by mouth daily PROPH: SCDs for DVT prophylaxis. No pharmacologic DVT prophylaxis due to intracerebral hemorrhage. Famotidine IV for stress ulcer prophylaxis ACCESS: Peripheral IV providing adequate access at this time We'll consult and transfer to hospitalist service for further medical management. Plan to transfer to floor if head CT stable. Marcus Guerrero MD Sep 02, 2017 17:18
--- NOTE | 2017-09-02 17:46 | RADRPT ---
EXAM DATE/TIME: 09/02/2017 17:36 [facility] COMPARISON: CT BRAIN W/O CONTRAST, September 01, 2017, 20:29. INDICATIONS : Follow up intracranial hemorrhage in trauma patient. RADIATION DOSE: 33.22 CTDIvol (mGy) MEDICAL HISTORY : Cardiovascular disease. SURGICAL HISTORY : None. ENCOUNTER: Subsequent ACUITY: 1 day PAIN SCALE: 8/10 LOCATION: cranial TECHNIQUE: Multiple contiguous axial images were obtained of the head. Using automated exposure control and adj ustment of the mA and/or kV according to patient size, radiation dose was kept as low as reasonably a chievable to obtain optimal diagnostic quality images. DICOM format image data is available electro nically for review and comparison. FINDINGS: There has been a slight interval increase in high density hemorrhage in posterior right temporal region. There is a new small nodular high density small hematoma now noted measuring approximately 5 mm. There is no mass effect or midline shift. The ventricular system remains within normal limits. T he posterior fossa and brainstem are unremarkable. Mild atrophic changes again noted. The bone window s the ma bone windows are unremarkable. CONCLUSION: Slight interval increase in the hemorrhage in the posterior right temporal lobe with apparent small hematoma now noted. Vance Briscoe MD on September 02, 2017 at 17:40 Board Certified Radiologist. This report was verified electronically.
[2017-09-02] MEDS: hydrALAZINE HCL 20 MG/ML VIAL IV PUSH PRN (19:20)
--- NOTE | 2017-09-02 20:08 | HHI.NSPN ---
(Ke Aj) History Chief Complaint: Chest wall pain (Ke Aj) Interval History 09/01: This is a 77-year-old female patient who was at a restaurant when she suddenly had a fall. She reports striking her head and she had a loss of consciousness. The patient does not remember the whole incident at the present time. The patient underwent evaluation in the emergency room, was found to have a cerebral hemorrhage, and neurosurgery consult was placed. In addition to her injury, the patient complains of right hand pain, left elbow pain and chest pain. It is remarkable that the patient has a history of atrial fibrillation and takes Eliquis because of this. The patient denies any headaches. She also complains of moderate discomfort in her neck. 09/02: The patient is awake and alert when seen. She reports that she had a headache earlier but it has resolved. She denies any dizziness or nausea. She denies any numbness or tingling to the extremities. She does have pain to the upper extremities but it is related to her injuries from the fall. She does say her neck feels stiff. She is moving all extremities spontaneously and to command. She did go for a repeat CT brain this afternoon which demonstrated a slight increase in the haemorrhage with development of a haematoma. (Ke Aj) Exam Results 09/01/17 09/01/17 09/02/17 09/02/17 09/03/17 09/03/17 06:00 18:00 06:00 18:00 06:00 18:00 Intake Total 111 ml Output Total 400 ml Balance -289 ml Intake IV Total 111 ml Output Urine Total 400 ml # Voids 2 Vital Signs Date Time Temp Pulse Resp B/P (MAP) Pulse Ox O2 Delivery O2 Flow Rate FiO2 09/02/17 19:23 72 18 153/70 (97) 98 Room Air 09/02/17 19:16 68 18 190/81 (117) 97 Room Air 09/02/17 17:37 67 18 172/78 (109) 98 Room Air 3/26/18 14:58 79 18 147/69 (95) 98 Room Air 09/02/17 14:26 97 21 09/02/17 11:53 82 18 161/75 (103) 97 Room Air 09/02/17 11:19 79 18 171/77 (108) 98 Room Air 09/02/17 09:30 76 18 172/79 (110) 98 Room Air 09/02/17 06:30 76 17 158/71 (100) 97 Room Air 09/02/17 06:07 16 09/02/17 05:59 88 16 150/70 (96) 96 Room Air 09/02/17 05:54 87 20 160/68 (98) 95 Room Air 09/02/17 05:04 102 14 162/72 (102) 95 Room Air 09/02/17 04:00 105 20 166/86 (112) 96 Room Air 09/02/17 01:35 19 09/02/17 01:16 100 21 174/74 (107) 97 Room Air 09/02/17 00:14 103 20 166/69 (101) 98 Room Air 09/01/17 22:25 20 99 Room Air 09/01/17 22:24 103 20 138/79 (98) 99 Room Air 09/01/17 20:05 104 22 Room Air 09/01/17 19:56 97.9 110 20 167/99 (121) 99 (Ke Aj) Physical Examination GENERAL: Awake & alert. Readily interacts. Affect essentially normal. No apparent distress but appears uncomfortable. NECK: Minimally TTP of midline cervical spine. Neck supple. No JVD. Trachea midline. HEENT: Left side facial abrasions. Left upper lip laceration well-approximated w /sutures w/o drainage, erythema or streaking. PERRLA 2 mm brisk, EOMI. MMM & pink, tongue midline to protrusion. MUSCULOSKELETAL: MERRITT spontaneously. Multiple ecchymotic areas to upper extremities. Right hand & wrist TTP. Left elbow TTP. NEUROLOGICAL: AAOx3. Speech clear & appropriate. Follows simple commands w/o difficulty. CN II through XII appear grossly intact. Sensation intact to light touch to all extremities. Motor strength strong to all major flexion & extension muscle groups of the extremities, to include left wrist flexors & extensors and left hand intrinsics & extrinsics, unable to assess right wrist or hand due to pain. (Ke Aj) Lab, Micro, Other Results Recent Impressions Wrist X-Ray 09/01/172054 Signed Impressions: Service Date/Time: Friday, September 01, 2017 21:06 - CONCLUSION: Significant degenerative changes, no fracture Freeman Manzano MD FACR Maxillofacial CT 09/01/172008 Signed Impressions: Service Date/Time: Friday, September 01, 2017 20:29 - CONCLUSION: Negative for fracture Freeman Manzano MD FACR Elbow X-Ray 09/01/172008 Signed Impressions: Service Date/Time: Friday, September 01, 2017 20:53 - CONCLUSION: Degenerative changes with small joint effusion. I cannot see the fracture. Freeman Manzano MD FACR Cervical Spine CT 09/01/172008 Signed Impressions: Service Date/Time: Friday, September 01, 2017 20:29 - CONCLUSION: Degenerative changes worse at C5-C6. No fracture Freeman Manzano MD FACR Pelvis X-Ray 09/01/172004 Signed Impressions: Service Date/Time: Friday, September 01, 2017 20:49 - CONCLUSION: Negative for fracture Freeman Manzano MD FACR Head CT 09/01/172004 Signed Impressions: Service Date/Time: Friday, September 01, 2017 20:29 - CONCLUSION: Small apparent 1.5 symmetr cortical hemorrhage right posterior temporal region. There is no extra-axial blood. Freeman Manzano MD FACR Chest X-Ray 09/01/172004 Signed Impressions: Service Date/Time: Friday, September 01, 2017 20:44 - CONCLUSION: No acute disease. Freeman Manzano MD FACR Laboratory Tests Test 09/01/17 20:12 09/02/17 00:08 09/02/17 05:03 09/02/17 10:50 White Blood Count 7.5 TH/MM3 Red Blood Count 3.75 MIL/MM3 Hemoglobin 11.6 GM/DL Bedside Hemoglobin 11.2 G/DL Hematocrit 34.4 % Bedside Hematocrit 33.0 % Mean Corpuscular Volume 91.8 FL Mean Corpuscular Hemoglobin 31.0 PG Mean Corpuscular Hemoglobin Concent 33.8 % Red Cell Distribution Width 15.1 % Platelet Count 211 TH/MM3 Mean Platelet Volume 8.0 FL Neutrophils (%) (Auto) 70.9 % Lymphocytes (%) (Auto) 17.3 % Monocytes (%) (Auto) 10.1 % Eosinophils (%) (Auto) 1.4 % Basophils (%) (Auto) 0.3 % Neutrophils # (Auto) 5.3 TH/MM3 Lymphocytes # (Auto) 1.3 TH/MM3 Monocytes # (Auto) 0.8 TH/MM3 Eosinophils # (Auto) 0.1 TH/MM3 Basophils # (Auto) 0.0 TH/MM3 CBC Comment DIFF FINAL Differential Comment Prothrombin Time 11.4 SEC Prothromb Time International Ratio 1.1 RATIO Activated Partial Thromboplast Time 29.7 SEC Bedside Sodium 140 MMOL/L Bedside Potassium 3.8 MMOL/L Bedside Chloride 107 MMOL/L Bedside Blood Urea Nitrogen 28 MG/DL Bedside Creatinine 1.1 MG/DL Bedside Glucose 115 MG/DL Total Bilirubin 0.4 MG/DL Direct Bilirubin 0.1 MG/DL Indirect Bilirubin 0.3 MG/DL Aspartate Amino Transf (AST/SGOT) 23 U/L Alanine Aminotransferase (ALT/SGPT) 18 U/L Alkaline Phosphatase 108 U/L Total Creatine Kinase 62 U/L Troponin I LESS THAN 0.02 NG/ML LESS THAN 0.02 NG/ML LESS THAN 0.02 NG/ML B-Type Natriuretic Peptide 85 PG/ML Total Protein 7.5 GM/DL Albumin 3.6 GM/DL Thyroid Stimulating Hormone 3rd Gen 3.270 uIU/ML Urine Color LIGHT-YELLOW Urine Turbidity CLEAR Urine pH 5.0 Urine Specific [place] 1.009 Urine Protein NEG mg/dL Urine Glucose (UA) NEG mg/dL Urine Ketones TRACE mg/dL Urine Occult Blood NEG Urine Nitrite NEG Urine Bilirubin NEG Urine Urobilinogen LESS THAN 2.0 MG/DL Urine Leukocyte Esterase TRACE Urine RBC 2 /hpf Urine WBC 2 /hpf Urine Bacteria RARE /hpf Urine Mucus FEW /lpf Microscopic Urinalysis Comment CULT NOT INDICATED Blood Urea Nitrogen 24 MG/DL Creatinine 0.94 MG/DL Random Glucose 125 MG/DL Calcium Level 9.3 MG/DL Phosphorus Level 3.7 MG/DL Magnesium Level 1.5 MG/DL Sodium Level 140 MEQ/L Potassium Level 3.5 MEQ/L Chloride Level 108 MEQ/L Carbon Dioxide Level 21.1 MEQ/L Anion Gap 11 MEQ/L Estimat Glomerular Filtration Rate 58 ML/MIN (Ke Aj) Medical Decision Making Impression and Plan Impression: Fall Right posterior temporal region cortical haemorrhage Neck pain Patient doing fairly well. Neurologically intact. CT brain demonstrated slight interval increase in right posterior temporal lobe haemorrhage w/a haematoma noted. Plan: Primary management per Polymer Specialist. Neuro checks. Stat CT brain for any decline in neuro status. [place] J cervical collar for comfort. Hold pharmacologic DVT prophylaxis. Mechanical DVT prophylaxis. (Ke Aj) Attending Statement The exam, history, and the medical decision-making described in the above note were completed with the assistance of the mid-level provider. I reviewed and agree with the findings presented. I attest that I had a [id number] encounter with the patient on the same day, and personally performed and documented my assessment and findings in the medical record. See additional noted 09/02/2017 for the undersigned (Saurabh Law MD) Ke Aj Sep 02, 2017 20:08 Saurabh Law MD Sep 03, 2017 00:00
--- NOTE | 2017-09-02 21:57 | HHI.NSPN ---
History Chief Complaint: Chest wall pain Interval History No MARIE or dizziness Exam Results Vital Signs Date Time Temp Pulse Resp B/P (MAP) Pulse Ox O2 Delivery O2 Flow Rate FiO2 09/02/17 20:08 09/02/17 20:00 Room Air 09/02/17 20:00 98.4 95 16 97 09/02/17 14:26 21 Intake and Output 09/02/17 09/02/17 09/03/17 08:00 16:00 00:00 Intake Total 60 ml Output Total 400 ml Balance -340 ml Physical Examination GENERAL: Awake & alert. Readily interacts. Affect essentially normal. No apparent distress but appears uncomfortable. NECK: Minimally TTP of midline cervical spine. Neck supple. No JVD. Trachea midline. HEENT: Left side facial abrasions. Left upper lip laceration well-approximated w /sutures w/o drainage, erythema or streaking. PERRLA 2 mm brisk, EOMI. MMM & pink, tongue midline to protrusion. Bilateral periorbital ecchymosis MUSCULOSKELETAL: MERRITT spontaneously. Multiple ecchymotic areas to upper extremities. Right hand & wrist TTP. Left elbow TTP. NEUROLOGICAL: AAOx3. Speech clear & appropriate. Follows simple commands w/o difficulty. CN II through XII appear grossly intact. Sensation intact to light touch to all extremities. Motor strength strong to all major flexion & extension muscle groups of the extremities, to include left wrist flexors & extensors and left hand intrinsics & extrinsics, unable to assess right wrist or hand due to pain. Lab, Micro, Other Results 09/02/17 CT Head images reviewed. There is a slight increase in the small right temporal hematoma. Medical Decision Making Impression and Plan Impression: Mild TBI Facial Fx and contusion 09/02/17 CT Head images reviewed. There is a slight increase in the small right temporal hematoma. Plan: D/W patient Hold ASA and Statins OK to proceed with surgery for facial fractures as needed OOB Since he is traveling on a boat, it would be prudent to check a F/U ct head before he departs Saurabh Law MD Sep 02, 2017 21:57
[2017-09-03] VITALS (12 sets, daily range): BP systolic 132–148; BP diastolic 65–79; PULSE 75–111; RESP 17–25; TEMP 97.7–98.7; O2SAT 96–99
--- NOTE | 2017-09-03 00:20 | EKG ---
Date Performed: 09/01/2017 Time Performed: 21:29:05 PTAGE: 77 years EKG: ATRIAL FIBRILLATION ABNORMAL RHYTHM ECG NO PREVIOUS TRACING DOCTOR: Suki Portillo Interpretating Date/Time 09/03/2017 00:10:41
[2017-09-03] MEDS: CHLORHEXIDINE GLUCONATE 2 % 1 PACK (2 CLOTHS) TOP SCH (04:00)
[2017-09-03] MEDS: ACETAMINOPHEN/HYDROcodone 325 MG/5 MG TAB PO PRN ×4 (04:46→22:57)
[2017-09-03] MEDS: LEVOTHYROXINE SODIUM 75 MCG TAB PO SCH (06:00)
[2017-09-03] MEDS: CARVEDILOL 12.5 MG TAB PO SCH ×2 (08:44→17:49)
[2017-09-03] MEDS: DOCUSATE SODIUM 50 MG/SENNA 8.6 MG TAB PO SCH ×2 (08:44→20:47)
[2017-09-03] MEDS: SODIUM CHLORIDE 0.9% FLUSH 10 ML FLUSH IV FLUSH SCH ×2 (08:45→20:48)
[2017-09-03] MEDS: FAMOTIDINE 20 MG/2 ML VIAL IV PUSH SCH (08:45)
--- NOTE | 2017-09-03 11:47 | HHI.NSPN ---
History Chief Complaint: Pain to her bruises. Interval History 09/01: This is a 77-year-old female patient who was at a restaurant when she suddenly had a fall. She reports striking her head and she had a loss of consciousness. The patient does not remember the whole incident at the present time. The patient underwent evaluation in the emergency room, was found to have a cerebral hemorrhage, and neurosurgery consult was placed. In addition to her injury, the patient complains of right hand pain, left elbow pain and chest pain. It is remarkable that the patient has a history of atrial fibrillation and takes Eliquis because of this. The patient denies any headaches. She also complains of moderate discomfort in her neck. 09/02: The patient is awake and alert when seen. She reports that she had a headache earlier but it has resolved. She denies any dizziness or nausea. She denies any numbness or tingling to the extremities. She does have pain to the upper extremities but it is related to her injuries from the fall. She does say her neck feels stiff. She is moving all extremities spontaneously and to command. She did go for a repeat CT brain this afternoon which demonstrated a slight increase in the haemorrhage with development of a haematoma. 09/03: When seen this morning the patient is awake and alert visiting with her . She does have pain to the extremities where she has bruises. She denies any headache, dizziness or numbness. She has no neck pain. She denies any numbness, tingling or other pain to the extremities. Upon examination the patient remains neurological intact. Her reports that they plan to leave for their home in [place], [place], next week by flying. Exam Results 09/01/17 09/01/17 09/02/17 09/02/17 09/03/17 09/03/17 06:00 18:00 06:00 18:00 06:00 18:00 Intake Total 111 ml 340 ml Output Total 400 ml Balance -289 ml 340 ml Intake Oral 340 ml IV Total 111 ml Output Urine Total 400 ml # Voids 2 6 # Bowel Movements 0 Vital Signs Date Time Temp Pulse Resp B/P (MAP) Pulse Ox O2 Delivery O2 Flow Rate FiO2 09/03/17 08:00 98.6 84 20 144/79 (100) 96 09/03/17 08:00 84 09/03/17 07:00 Room Air 09/03/17 06:00 79 09/03/17 04:00 82 09/03/17 04:00 98.3 82 19 141/76 (97) 96 09/03/17 02:00 84 09/03/17 00:00 98.2 86 20 147/69 (95) 96 09/03/17 00:00 75 09/02/17 22:00 81 09/02/17 20:08 09/02/17 20:00 Room Air 09/02/17 20:00 98.4 95 16 138/65 (89) 97 09/02/17 19:23 72 18 153/70 (97) 98 Room Air 09/02/17 19:16 68 18 190/81 (117) 97 Room Air 09/02/17 17:37 67 18 172/78 (109) 98 Room Air 09/02/17 14:58 79 18 147/69 (95) 98 Room Air 09/02/17 14:26 97 21 09/02/17 11:53 82 18 161/75 (103) 97 Room Air 09/02/17 11:19 79 18 171/77 (108) 98 Room Air 09/02/17 09:30 76 18 172/79 (110) 98 Room Air 09/02/17 06:30 76 17 158/71 (100) 97 Room Air 09/02/17 06:07 16 09/02/17 05:59 88 16 150/70 (96) 96 Room Air 09/02/17 05:54 87 20 160/68 (98) 95 Room Air 09/02/17 05:04 102 14 162/72 (102) 95 Room Air 09/02/17 04:00 105 20 166/86 (112) 96 Room Air 09/02/17 01:35 19 09/02/17 01:16 100 21 174/74 (107) 97 Room Air 09/02/17 00:14 103 20 166/69 (101) 98 Room Air 09/01/17 22:25 20 99 Room Air 09/01/17 22:24 103 20 138/79 (98) 99 Room Air 09/01/17 20:05 104 22 Room Air 09/01/17 19:56 97.9 110 20 167/99 (121) 99 Physical Examination GENERAL: Awake & alert visiting with her . Readily interacts. Affect essentially normal. No apparent distress. NECK: Midline cervical spine NTTP. Neck supple. No JVD. Trachea midline. HEENT: Left side facial abrasions & evolving ecchymosis. Left upper lip laceration well-approximated w/sutures w/o drainage, erythema or streaking. PERRLA 2 mm brisk, EOMI. MMM & pink, tongue midline to protrusion. Bilateral periorbital ecchymosis MUSCULOSKELETAL: MERRITT spontaneously. Multiple ecchymotic areas to upper extremities. Right hand & wrist TTP. Left knee abrasion TTP. NEUROLOGICAL: AAOx3. Speech clear & appropriate. Follows simple commands w/o difficulty. CN II through XII appear grossly intact. Sensation intact to light touch to all extremities. Motor strength strong to all major flexion & extension muscle groups of the extremities, to include left wrist flexors & extensors and left hand intrinsics & extrinsics; right hand intrinsics & extrinsics 4/5 due to pain. Lab, Micro, Other Results Recent Impressions Head CT 09/02/17 1543 Signed Impressions: Service Date/Time: Saturday, September 02, 2017 17:36 - CONCLUSION: Slight interval increase in the hemorrhage in the posterior right temporal lobe with apparent small hematoma now noted. Vance Briscoe MD Wrist X-Ray 09/01/172054 Signed Impressions: Service Date/Time: Friday, September 01, 2017 21:06 - CONCLUSION: Significant degenerative changes, no fracture Freeman Manzano MD FACR Maxillofacial CT 09/01/172008 Signed Impressions: Service Date/Time: Friday, September 01, 2017 20:29 - CONCLUSION: Negative for fracture Freeman Manzano MD FACR Elbow X-Ray 09/01/172008 Signed Impressions: Service Date/Time: Friday, September 01, 2017 20:53 - CONCLUSION: Degenerative changes with small joint effusion. I cannot see the fracture. Freeman Manzano MD FACR Cervical Spine CT 09/01/172008 Signed Impressions: Service Date/Time: Friday, September 01, 2017 20:29 - CONCLUSION: Degenerative changes worse at C5-C6. No fracture Freeman Manzano MD FACR Pelvis X-Ray 09/01/172004 Signed Impressions: Service Date/Time: Friday, September 01, 2017 20:49 - CONCLUSION: Negative for fracture Freeman Manzano MD FACR Head CT 09/01/172004 Signed Impressions: Service Date/Time: Friday, September 01, 2017 20:29 - CONCLUSION: Small apparent 1.5 symmetr cortical hemorrhage right posterior temporal region. There is no extra-axial blood. Freeman Manzano MD FACR Chest X-Ray 09/01/172004 Signed Impressions: Service Date/Time: Friday, September 01, 2017 20:44 - CONCLUSION: No acute disease. Freeman Manzano MD FACR Laboratory Tests Test 09/01/17 20:12 09/02/17 00:08 09/02/17 05:03 09/02/17 10:50 White Blood Count 7.5 TH/MM3 Red Blood Count 3.75 MIL/MM3 Hemoglobin 11.6 GM/DL Bedside Hemoglobin 11.2 G/DL Hematocrit 34.4 % Bedside Hematocrit 33.0 % Mean Corpuscular Volume 91.8 FL Mean Corpuscular Hemoglobin 31.0 PG Mean Corpuscular Hemoglobin Concent 33.8 % Red Cell Distribution Width 15.1 % Platelet Count 211 TH/MM3 Mean Platelet Volume 8.0 FL Neutrophils (%) (Auto) 70.9 % Lymphocytes (%) (Auto) 17.3 % Monocytes (%) (Auto) 10.1 % Eosinophils (%) (Auto) 1.4 % Basophils (%) (Auto) 0.3 % Neutrophils # (Auto) 5.3 TH/MM3 Lymphocytes # (Auto) 1.3 TH/MM3 Monocytes # (Auto) 0.8 TH/MM3 Eosinophils # (Auto) 0.1 TH/MM3 Basophils # (Auto) 0.0 TH/MM3 CBC Comment DIFF FINAL Differential Comment Prothrombin Time 11.4 SEC Prothromb Time International Ratio 1.1 RATIO Activated Partial Thromboplast Time 29.7 SEC Bedside Sodium 140 MMOL/L Bedside Potassium 3.8 MMOL/L Bedside Chloride 107 MMOL/L Bedside Blood Urea Nitrogen 28 MG/DL Bedside Creatinine 1.1 MG/DL Bedside Glucose 115 MG/DL Total Bilirubin 0.4 MG/DL Direct Bilirubin 0.1 MG/DL Indirect Bilirubin 0.3 MG/DL Aspartate Amino Transf (AST/SGOT) 23 U/L Alanine Aminotransferase (ALT/SGPT) 18 U/L Alkaline Phosphatase 108 U/L Total Creatine Kinase 62 U/L Troponin I LESS THAN 0.02 NG/ML LESS THAN 0.02 NG/ML LESS THAN 0.02 NG/ML B-Type Natriuretic Peptide 85 PG/ML Total Protein 7.5 GM/DL Albumin 3.6 GM/DL Thyroid Stimulating Hormone 3rd Gen 3.270 uIU/ML Urine Color LIGHT-YELLOW Urine Turbidity CLEAR Urine pH 5.0 Urine Specific [place] 1.009 Urine Protein NEG mg/dL Urine Glucose (UA) NEG mg/dL Urine Ketones TRACE mg/dL Urine Occult Blood NEG Urine Nitrite NEG Urine Bilirubin NEG Urine Urobilinogen LESS THAN 2.0 MG/DL Urine Leukocyte Esterase TRACE Urine RBC 2 /hpf Urine WBC 2 /hpf Urine Bacteria RARE /hpf Urine Mucus FEW /lpf Microscopic Urinalysis Comment CULT NOT INDICATED Blood Urea Nitrogen 24 MG/DL Creatinine 0.94 MG/DL Random Glucose 125 MG/DL Calcium Level 9.3 MG/DL Phosphorus Level 3.7 MG/DL Magnesium Level 1.5 MG/DL Sodium Level 140 MEQ/L Potassium Level 3.5 MEQ/L Chloride Level 108 MEQ/L Carbon Dioxide Level 21.1 MEQ/L Anion Gap 11 MEQ/L Estimat Glomerular Filtration Rate 58 ML/MIN Medical Decision Making Impression and Plan Impression: Fall Right posterior temporal region cortical haemorrhage Neck pain Patient continues to do well and remains neurologically intact. Intermittently hypertensive. CT brain demonstrated slight interval increase in right posterior temporal lobe haemorrhage w/a haematoma noted. Plan: Primary management per Customer Service Teller. Neuro checks. Stat CT brain for any decline in neuro status. Hold pharmacologic DVT prophylaxis. Mechanical DVT prophylaxis. Mobilise patient w/assistance. Physical Therapy eval & tx. Hold aspirin and statin medications. Okay for facial surgery from Neurosurgery's perspective. Ke Aj Sep 03, 2017 11:47
[2017-09-03] MEDS: hydrALAZINE HCL 20 MG/ML VIAL IV PUSH PRN (14:35)
--- NOTE | 2017-09-03 17:03 | HHI.PR ---
Subjective Remarks Follow-up for atrial fibrillation, fall, right posterior temporal region intracranial hemorrhage. Patient is currently doing well. Resting in bed. No chest pain, shortness of breath, fever or chills. Earlier she was able to ambulate with minimal assistance. Objective Vitals Vital Signs Date Time Temp Pulse Resp B/P (MAP) Pulse Ox O2 Delivery O2 Flow Rate FiO2 09/03/17 14:00 94 09/03/17 12:00 78 09/03/17 12:00 98.7 78 25 144/72 (96) 97 09/03/17 10:00 99 21 09/03/17 10:00 84 09/03/17 08:00 98.6 84 20 144/79 (100) 96 09/03/17 08:00 84 09/03/17 07:00 Room Air 09/03/17 06:00 79 09/03/17 04:00 82 09/03/17 04:00 98.3 82 19 141/76 (97) 96 09/03/17 02:00 84 09/03/17 00:00 98.2 86 20 147/69 (95) 96 09/03/17 00:00 75 09/02/17 22:00 81 09/02/17 20:08 09/02/17 20:00 Room Air 09/02/17 20:00 98.4 95 16 138/65 (89) 97 09/02/17 19:23 72 18 153/70 (97) 98 Room Air 09/02/17 19:16 68 18 190/81 (117) 97 Room Air 09/02/17 17:37 67 18 172/78 (109) 98 Room Air I/O 09/02/17 09/02/17 09/02/17 09/03/17 09/03/17 09/03/17 07:00 15:00 23:00 07:00 15:00 23:00 Intake Total 60 ml 340 ml Output Total 400 ml Balance -340 ml 340 ml Intake Oral 340 ml IV Total 60 ml Output Urine Total 400 ml # Voids 2 6 # Bowel Movements 0 Result Diagram: 09/01/17201109/02/17 0504 Imaging Last Impressions Head CT 09/02/17 0164 Signed Impressions: Service Date/Time: Saturday, September 02, 2017 17:36 - CONCLUSION: Slight interval increase in the hemorrhage in the posterior right temporal lobe with apparent small hematoma now noted. Vance Briscoe MD Wrist X-Ray 09/01/172054 Signed Impressions: Service Date/Time: Friday, September 01, 2017 21:06 - CONCLUSION: Significant degenerative changes, no fracture Freeman Manzano MD FACR Maxillofacial CT 09/01/172008 Signed Impressions: Service Date/Time: Friday, September 01, 2017 20:29 - CONCLUSION: Negative for fracture Freeman Manzano MD FACR Elbow X-Ray 09/01/172008 Signed Impressions: Service Date/Time: Friday, September 01, 2017 20:53 - CONCLUSION: Degenerative changes with small joint effusion. I cannot see the fracture. Freeman Manzano MD FACR Cervical Spine CT 09/01/172008 Signed Impressions: Service Date/Time: Friday, September 01, 2017 20:29 - CONCLUSION: Degenerative changes worse at C5-C6. No fracture Freeman Manzano MD FACR Pelvis X-Ray 09/01/172004 Signed Impressions: Service Date/Time: Friday, September 01, 2017 20:49 - CONCLUSION: Negative for fracture Freeman Manzano MD FACR Chest X-Ray 09/01/172004 Signed Impressions: Service Date/Time: Friday, September 01, 2017 20:44 - CONCLUSION: No acute disease. Freeman Manzano MD FACR Objective Remarks GENERAL: Alert, oriented 3, NAD. SKIN: Warm and dry. Laceration over left eyebrow. Slight redness on the left face. HEAD: Normocephalic. EYES: No scleral icterus. No injection or drainage. NECK: Supple, trachea midline. No JVD or lymphadenopathy. CARDIOVASCULAR: Regular rate and rhythm without murmurs, gallops, or rubs. RESPIRATORY: Breath sounds equal bilaterally. No accessory muscle use. GASTROINTESTINAL: Abdomen soft, non-tender, nondistended. MUSCULOSKELETAL: No cyanosis, or edema. BACK: Nontender without obvious deformity. No CVA tenderness. Procedures None A/P Problem List: (1) TBI (traumatic brain injury) ICD Code: S06.9X9A - Unspecified intracranial injury with loss of consciousness of unspecified duration, initial encounter (2) Anticoagulated ICD Code: Z79.01 - [facility] (current) use of anticoagulants Status: Acute (3) Fall ICD Code: W19.XXXA - Unspecified fall, initial encounter (4) HTN (hypertension) ICD Code: I10 - Essential (primary) hypertension (5) Hypothyroidism ICD Code: E03.9 - Hypothyroidism, unspecified Assessment and Plan 77 year-old female with past medical history of atrial fibrillation on chronic anticoagulation with Eliquis, hypertension, hypothyroidism, osteoarthritis who presented to [facility] emergency department after a fall in which she reportedly tripped over some uneven andrea. She fell forward and hit her face. There was loss of consciousness that was reportedly witnessed by her . She had some confusion that subsequently resolved. CT brain showed a 1.5 cm R temporal lobe intraparenchymal hemorrhage. She has a left upper lip laceration that has been repaired in the emergency department. Patient was evaluated by neurosurgery and admitted to the traffic maintenance officer service. Repeat CT scan on 09/02/2017 shows slightly increased intracranial hemorrhage. Neurosurgery continues to follow this patient. -Acute mechanical fall -Acute right posterior temporal intracranial hemorrhage -Hold pharmacological DVT prophylaxis including Eliquis, aspirin. -physical therapy eval pending. Patient will be transferred to the floor today. -Atrial fibrillation -[id number] is likely 3 (female, age above 75). -Continue to hold apixaban. When okay with neurosurgery we can start apixaban. Consider apixaban 2.5 mg twice daily since patient is 58.3 kg and 77- year-old. -Hypertension -Change 12.5 mg twice daily. -Add nifedipine 30 mg daily with holding parameters. Full code. SCDs. Problem Qualifiers (1) HTN (hypertension): Qualified Codes: I10 - Essential (primary) hypertension Angelique Forte DO Sep 03, 2017 17:03
[2017-09-03] MEDS ORDERED: CARVEDILOL 12.5 MG TAB PO SCH (17:32)
[2017-09-03] MEDS: FAMOTIDINE 20 MG TAB PO SCH (20:47)
[2017-09-04] VITALS (10 sets, daily range): BP systolic 115–178; BP diastolic 55–81; PULSE 69–96; RESP 17–20; TEMP 97.9–98.8; O2SAT 96–99
[2017-09-04] MEDS: CHLORHEXIDINE GLUCONATE 2 % 1 PACK (2 CLOTHS) TOP SCH (04:00)
[2017-09-04] MEDS: LEVOTHYROXINE SODIUM 75 MCG TAB PO SCH (06:03)
[2017-09-04] MEDS: ACETAMINOPHEN/HYDROcodone 325 MG/5 MG TAB PO PRN ×2 (06:03→21:00)
[2017-09-04] MEDS: FAMOTIDINE 20 MG TAB PO SCH ×2 (08:51→21:00)
[2017-09-04] MEDS: CARVEDILOL 12.5 MG TAB PO SCH ×2 (08:51→21:00)
[2017-09-04] MEDS: DOCUSATE SODIUM 50 MG/SENNA 8.6 MG TAB PO SCH ×2 (08:51→20:59)
[2017-09-04] MEDS: SODIUM CHLORIDE 0.9% FLUSH 10 ML FLUSH IV FLUSH SCH ×2 (08:52→21:00)
[2017-09-04] MEDS ORDERED: NIFEdipine 30 MG SUSTAINED RELEASE TAB PO SCH (09:00)
--- NOTE | 2017-09-04 09:29 | HHI.PR ---
Subjective Remarks Follow-up for atrial fibrillation, fall, right posterior temporal region intracranial hemorrhage. Patient is currently doing well. No acute concerns. No fever, chills. Inquires about anti-coagulations. Objective Vitals Vital Signs Date Time Temp Pulse Resp B/P (MAP) Pulse Ox O2 Delivery O2 Flow Rate FiO2 09/04/17 07:50 98.8 71 17 162/70 (100) 96 09/04/17 05:49 98.0 84 18 150/68 (95) 98 09/04/17 00:58 96 09/04/17 00:00 98.7 90 18 132/60 (84) 98 09/03/17 20:49 97 Room Air 09/03/17 19:00 97.7 88 18 132/65 (87) 97 09/03/17 18:22 97.9 98 18 148/73 (98) 97 09/03/17 17:45 111 09/03/17 16:00 88 09/03/17 16:00 98.3 88 17 146/68 (94) 97 09/03/17 14:00 94 09/03/17 12:00 78 09/03/17 12:00 98.7 78 25 144/72 (96) 97 09/03/17 10:00 99 21 09/03/17 10:00 84 I/O 09/03/17 09/03/17 09/03/17 09/04/17 09/04/17 09/04/17 07:00 15:00 23:00 07:00 15:00 23:00 Intake Total 340 ml 660 ml Output Total 250 ml Balance 340 ml 410 ml Intake Oral 340 ml 660 ml Output Urine Total 250 ml # Voids 6 3 4 # Bowel Movements 0 Result Diagram: 09/01/17201109/02/17 0503 Imaging Last Impressions Head CT 09/02/17 1543 Signed Impressions: Service Date/Time: Saturday, September 02, 2017 17:36 - CONCLUSION: Slight interval increase in the hemorrhage in the posterior right temporal lobe with apparent small hematoma now noted. Vance Briscoe MD Wrist X-Ray 09/01/172054 Signed Impressions: Service Date/Time: Friday, September 01, 2017 21:06 - CONCLUSION: Significant degenerative changes, no fracture Freeman Manzano MD FACR Maxillofacial CT 09/01/172008 Signed Impressions: Service Date/Time: Friday, September 01, 2017 20:29 - CONCLUSION: Negative for fracture Freeman Manzano MD FACR Elbow X-Ray 09/01/172008 Signed Impressions: Service Date/Time: Friday, September 01, 2017 20:53 - CONCLUSION: Degenerative changes with small joint effusion. I cannot see the fracture. Freeman Manzano MD FACR Cervical Spine CT 09/01/172008 Signed Impressions: Service Date/Time: Friday, September 01, 2017 20:29 - CONCLUSION: Degenerative changes worse at C5-C6. No fracture Freeman Manzano MD FACR Pelvis X-Ray 09/01/172004 Signed Impressions: Service Date/Time: Friday, September 01, 2017 20:49 - CONCLUSION: Negative for fracture Freeman Manzano MD FACR Chest X-Ray 09/01/172004 Signed Impressions: Service Date/Time: Friday, September 01, 2017 20:44 - CONCLUSION: No acute disease. Freeman Manzano MD FACR Objective Remarks GENERAL: Alert, oriented 3, NAD. SKIN: Warm and dry. Laceration over left eyebrow. Slight redness on the left face. HEAD: Normocephalic. EYES: No scleral icterus. No injection or drainage. NECK: Supple, trachea midline. No JVD or lymphadenopathy. CARDIOVASCULAR: Regular rate and rhythm without murmurs, gallops, or rubs. RESPIRATORY: Breath sounds equal bilaterally. No accessory muscle use. GASTROINTESTINAL: Abdomen soft, non-tender, nondistended. MUSCULOSKELETAL: No cyanosis, or edema. BACK: Nontender without obvious deformity. No CVA tenderness. Procedures None A/P Problem List: (1) TBI (traumatic brain injury) ICD Code: S06.9X9A - Unspecified intracranial injury with loss of consciousness of unspecified duration, initial encounter (2) Anticoagulated ICD Code: Z79.01 - group home (current) use of anticoagulants Status: Acute (3) Fall ICD Code: W19.XXXA - Unspecified fall, initial encounter (4) HTN (hypertension) ICD Code: I10 - Essential (primary) hypertension (5) Hypothyroidism ICD Code: E03.9 - Hypothyroidism, unspecified Assessment and Plan 77 year-old female with past medical history of atrial fibrillation on chronic anticoagulation with Eliquis, hypertension, hypothyroidism, osteoarthritis who presented to [facility] emergency department after a fall in which she reportedly tripped over some uneven andrea. She fell forward and hit her face. There was loss of consciousness that was reportedly witnessed by her . She had some confusion that subsequently resolved. CT brain showed a 1.5 cm R temporal lobe intraparenchymal hemorrhage. She has a left upper lip laceration that has been repaired in the emergency department. Patient was evaluated by neurosurgery and admitted to the transport technician service. Repeat CT scan on 09/02/2017 shows slightly increased intracranial hemorrhage. Neurosurgery continues to follow this patient. -Acute mechanical fall -Acute right posterior temporal intracranial hemorrhage -Hold pharmacological DVT prophylaxis including Eliquis, aspirin. -physical therapy recommends home with no PT. Walker with front wheel walker recommended. -Atrial fibrillation -[id number] is likely 3 (female, age above 75). -Continue to hold apixaban. Would recommend holding Apixaban for two weeks since ICH. This was also recommended by Neuorsurgery and consistent with literature review (uptodate). - Consider apixaban 2.5 mg twice daily since patient is 58.3 kg and 77-year- old. -Hypertension -Change 12.5 mg twice daily. -Increase nifedipine 60 mg daily with holding parameters. Full code. SCDs. Likely discharge in the AM. Problem Qualifiers (1) HTN (hypertension): Qualified Codes: I10 - Essential (primary) hypertension Angelique Forte DO Sep 04, 2017 09:29
[2017-09-04] MEDS ORDERED: NIFEdipine 30 MG SUSTAINED RELEASE TAB PO ONE (14:30)
--- NOTE | 2017-09-04 16:37 | HHI.NSPN ---
History Chief Complaint: Some pain to her neck with turning it. Interval History 09/01: This is a 77-year-old female patient who was at a restaurant when she suddenly had a fall. She reports striking her head and she had a loss of consciousness. The patient does not remember the whole incident at the present time. The patient underwent evaluation in the emergency room, was found to have a cerebral hemorrhage, and neurosurgery consult was placed. In addition to her injury, the patient complains of right hand pain, left elbow pain and chest pain. It is remarkable that the patient has a history of atrial fibrillation and takes Eliquis because of this. The patient denies any headaches. She also complains of moderate discomfort in her neck. 09/02: The patient is awake and alert when seen. She reports that she had a headache earlier but it has resolved. She denies any dizziness or nausea. She denies any numbness or tingling to the extremities. She does have pain to the upper extremities but it is related to her injuries from the fall. She does say her neck feels stiff. She is moving all extremities spontaneously and to command. She did go for a repeat CT brain this afternoon which demonstrated a slight increase in the haemorrhage with development of a haematoma. 09/03: When seen this morning the patient is awake and alert visiting with her . She does have pain to the extremities where she has bruises. She denies any headache, dizziness or numbness. She has no neck pain. She denies any numbness, tingling or other pain to the extremities. Upon examination the patient remains neurological intact. Her reports that they plan to leave for their home in [place], [place], next week by flying. 09/04: This afternoon the patient is awake in bed watching TV. She reports that she has some neck pain with turning it to the left and she isn't able to turn it as much as she usually is able to. She does say that she does have neck pain and decreased range of motion secondary to arthritis, but it "hits me harder than it usually does" now. She denies any headache or dizziness. The only extremity pain is to her upper extremity contusions. She denies any numbness or tingling to the extremities. No sensorimotor deficits noted upon examination. Exam Results 09/02/17 09/02/17 09/03/17 09/03/17 09/04/17 09/04/17 06:00 18:00 06:00 18:00 06:00 18:00 Intake Total 111 ml 340 ml 660 ml 600 ml Output Total 400 ml 250 ml Balance -289 ml 340 ml 410 ml 600 ml Intake Oral 340 ml 660 ml 600 ml IV Total 111 ml Output Urine Total 400 ml 250 ml # Voids 2 6 3 3 3 # Bowel Movements 0 Vital Signs Date Time Temp Pulse Resp B/P (MAP) Pulse Ox O2 Delivery O2 Flow Rate FiO2 09/04/17 15:55 98.0 77 18 115/55 (75) 98 09/04/17 11:33 97.9 81 18 178/81 (113) 98 09/04/17 08:55 72 09/04/17 07:50 98.8 71 17 162/70 (100) 96 09/04/17 05:49 98.0 84 18 150/68 (95) 98 09/04/17 00:58 96 09/04/17 00:00 98.7 90 18 132/60 (84) 98 09/03/17 20:49 97 Room Air 09/03/17 19:00 97.7 88 18 132/65 (87) 97 09/03/17 18:22 97.9 98 18 148/73 (98) 97 09/03/17 17:45 111 09/03/17 16:00 88 09/03/17 16:00 98.3 88 17 146/68 (94) 97 09/03/17 14:00 94 09/03/17 12:00 78 09/03/17 12:00 98.7 78 25 144/72 (96) 97 09/03/17 10:00 99 21 09/03/17 10:00 84 09/03/17 08:00 98.6 84 20 144/79 (100) 96 09/03/17 08:00 84 09/03/17 07:00 Room Air 09/03/17 06:00 79 09/03/17 04:00 82 09/03/17 04:00 98.3 82 19 141/76 (97) 96 09/03/17 02:00 84 09/03/17 00:00 98.2 86 20 147/69 (95) 96 09/03/17 00:00 75 09/02/17 22:00 81 09/02/17 20:08 09/02/17 20:00 Room Air 09/02/17 20:00 98.4 95 16 138/65 (89) 97 09/02/17 19:23 72 18 153/70 (97) 98 Room Air 09/02/17 19:16 68 18 190/81 (117) 97 Room Air 09/02/17 17:37 67 18 172/78 (109) 98 Room Air 09/02/17 14:58 79 18 147/69 (95) 98 Room Air 09/02/17 14:26 97 21 09/02/17 11:53 82 18 161/75 (103) 97 Room Air 09/02/17 11:19 79 18 171/77 (108) 98 Room Air 09/02/17 09:30 76 18 172/79 (110) 98 Room Air 09/02/17 06:30 76 17 158/71 (100) 97 Room Air 09/02/17 06:07 16 09/02/17 05:59 88 16 150/70 (96) 96 Room Air 09/02/17 05:54 87 20 160/68 (98) 95 Room Air 09/02/17 05:04 102 14 162/72 (102) 95 Room Air 09/02/17 04:00 105 20 166/86 (112) 96 Room Air 09/02/17 01:35 19 09/02/17 01:16 100 21 174/74 (107) 97 Room Air 09/02/17 00:14 103 20 166/69 (101) 98 Room Air 09/01/17 22:25 20 99 Room Air 09/01/17 22:24 103 20 138/79 (98) 99 Room Air 09/01/17 20:05 104 22 Room Air 09/01/17 19:56 97.9 110 20 167/99 (121) 99 Physical Examination GENERAL: Awake & alert in bed watching TV. Readily interacts. Affect normal. No apparent distress. NECK: Midline cervical spine NTTP. Decreased ROM to neck. Neck supple. No JVD. Trachea midline. HEENT: Left side facial abrasions & evolving ecchymosis. Left upper lip laceration well-approximated w/sutures w/o drainage, erythema or streaking. PERRLA 2 mm brisk, EOMI. MMM & pink, tongue midline to protrusion. Bilateral periorbital ecchymosis resolving. MUSCULOSKELETAL: MERRITT spontaneously. Multiple ecchymotic areas to upper extremities. Right hand & wrist TTP. Left knee abrasion. NEUROLOGICAL: AAOx3. Speech clear & appropriate. Follows simple commands w/o difficulty. CN II through XII appear grossly intact. Sensation intact to light touch to all extremities. Motor strength strong to all major flexion & extension muscle groups of the extremities. Lab, Micro, Other Results Recent Impressions Head CT 09/02/17 1543 Signed Impressions: Service Date/Time: Saturday, September 02, 2017 17:36 - CONCLUSION: Slight interval increase in the hemorrhage in the posterior right temporal lobe with apparent small hematoma now noted. Vance Briscoe MD Wrist X-Ray 09/01/172054 Signed Impressions: Service Date/Time: Friday, September 01, 2017 21:06 - CONCLUSION: Significant degenerative changes, no fracture Freeman Manzano MD FACR Maxillofacial CT 09/01/172008 Signed Impressions: Service Date/Time: Friday, September 01, 2017 20:29 - CONCLUSION: Negative for fracture Freeman Manzano MD FACR Elbow X-Ray 09/01/172008 Signed Impressions: Service Date/Time: Friday, September 01, 2017 20:53 - CONCLUSION: Degenerative changes with small joint effusion. I cannot see the fracture. Freeman Manzano MD FACR Cervical Spine CT 09/01/172008 Signed Impressions: Service Date/Time: Friday, September 01, 2017 20:29 - CONCLUSION: Degenerative changes worse at C5-C6. No fracture Freeman Manzano MD FACR Pelvis X-Ray 09/01/172004 Signed Impressions: Service Date/Time: Friday, September 01, 2017 20:49 - CONCLUSION: Negative for fracture Freeman Manzano MD FACR Head CT 09/01/172004 Signed Impressions: Service Date/Time: Friday, September 01, 2017 20:29 - CONCLUSION: Small apparent 1.5 symmetr cortical hemorrhage right posterior temporal region. There is no extra-axial blood. Freeman Manzano MD FACR Chest X-Ray 09/01/172004 Signed Impressions: Service Date/Time: Friday, September 01, 2017 20:44 - CONCLUSION: No acute disease. Freeman Manzano MD FACR Laboratory Tests Test 09/01/17 20:12 09/02/17 00:08 09/02/17 05:03 09/02/17 10:50 White Blood Count 7.5 TH/MM3 Red Blood Count 3.75 MIL/MM3 Hemoglobin 11.6 GM/DL Bedside Hemoglobin 11.2 G/DL Hematocrit 34.4 % Bedside Hematocrit 33.0 % Mean Corpuscular Volume 91.8 FL Mean Corpuscular Hemoglobin 31.0 PG Mean Corpuscular Hemoglobin Concent 33.8 % Red Cell Distribution Width 15.1 % Platelet Count 211 TH/MM3 Mean Platelet Volume 8.0 FL Neutrophils (%) (Auto) 70.9 % Lymphocytes (%) (Auto) 17.3 % Monocytes (%) (Auto) 10.1 % Eosinophils (%) (Auto) 1.4 % Basophils (%) (Auto) 0.3 % Neutrophils # (Auto) 5.3 TH/MM3 Lymphocytes # (Auto) 1.3 TH/MM3 Monocytes # (Auto) 0.8 TH/MM3 Eosinophils # (Auto) 0.1 TH/MM3 Basophils # (Auto) 0.0 TH/MM3 CBC Comment DIFF FINAL Differential Comment Prothrombin Time 11.4 SEC Prothromb Time International Ratio 1.1 RATIO Activated Partial Thromboplast Time 29.7 SEC Bedside Sodium 140 MMOL/L Bedside Potassium 3.8 MMOL/L Bedside Chloride 107 MMOL/L Bedside Blood Urea Nitrogen 28 MG/DL Bedside Creatinine 1.1 MG/DL Bedside Glucose 115 MG/DL Total Bilirubin 0.4 MG/DL Direct Bilirubin 0.1 MG/DL Indirect Bilirubin 0.3 MG/DL Aspartate Amino Transf (AST/SGOT) 23 U/L Alanine Aminotransferase (ALT/SGPT) 18 U/L Alkaline Phosphatase 108 U/L Total Creatine Kinase 62 U/L Troponin I LESS THAN 0.02 NG/ML LESS THAN 0.02 NG/ML LESS THAN 0.02 NG/ML B-Type Natriuretic Peptide 85 PG/ML Total Protein 7.5 GM/DL Albumin 3.6 GM/DL Thyroid Stimulating Hormone 3rd Gen 3.270 uIU/ML Urine Color LIGHT-YELLOW Urine Turbidity CLEAR Urine pH 5.0 Urine Specific [place] 1.009 Urine Protein NEG mg/dL Urine Glucose (UA) NEG mg/dL Urine Ketones TRACE mg/dL Urine Occult Blood NEG Urine Nitrite NEG Urine Bilirubin NEG Urine Urobilinogen LESS THAN 2.0 MG/DL Urine Leukocyte Esterase TRACE Urine RBC 2 /hpf Urine WBC 2 /hpf Urine Bacteria RARE /hpf Urine Mucus FEW /lpf Microscopic Urinalysis Comment CULT NOT INDICATED Blood Urea Nitrogen 24 MG/DL Creatinine 0.94 MG/DL Random Glucose 125 MG/DL Calcium Level 9.3 MG/DL Phosphorus Level 3.7 MG/DL Magnesium Level 1.5 MG/DL Sodium Level 140 MEQ/L Potassium Level 3.5 MEQ/L Chloride Level 108 MEQ/L Carbon Dioxide Level 21.1 MEQ/L Anion Gap 11 MEQ/L Estimat Glomerular Filtration Rate 58 ML/MIN Medical Decision Making Impression and Plan Impression: Fall Right posterior temporal region cortical haemorrhage Neck pain Patient doing well. No sensorimotor deficits noted. Now with decreased ROM & pain to neck when turning it to left. Intermittently hypertensive. CT brain demonstrated slight interval increase in right posterior temporal lobe haemorrhage w/a haematoma noted. Plan: Primary management per Physical Sciences Instructor. Neuro checks. Stat CT brain for any decline in neuro status. Hold pharmacologic DVT prophylaxis. Mechanical DVT prophylaxis. Mobilise patient w/assistance. Physical Therapy eval & tx. Hold aspirin and statin medications. Okay for facial surgery from Neurosurgery's perspective. Ke Aj Sep 04, 2017 16:37
[2017-09-04] MEDS ORDERED: WALKER WHEELS/F1 MIS (19:35)
[2017-09-05 04:00] VITALS: BP 142/70; PULSE 78; RESP 18; TEMP 98.1; O2SAT 98
[2017-09-05] MEDS: CHLORHEXIDINE GLUCONATE 2 % 1 PACK (2 CLOTHS) TOP SCH (04:00)
[2017-09-05] MEDS: ACETAMINOPHEN/HYDROcodone 325 MG/5 MG TAB PO PRN (06:12)
[2017-09-05] MEDS: LEVOTHYROXINE SODIUM 75 MCG TAB PO SCH (06:12)
[2017-09-05] MEDS ORDERED: NIFE60TA8 PO (08:12)
[2017-09-05] MEDS ORDERED: APIX5TAB PO (08:12)
[2017-09-05] MEDS: DOCUSATE SODIUM 50 MG/SENNA 8.6 MG TAB PO SCH (08:37)
[2017-09-05] MEDS: FAMOTIDINE 20 MG TAB PO SCH (08:37)
[2017-09-05] MEDS: CARVEDILOL 12.5 MG TAB PO SCH (08:37)
[2017-09-05] MEDS: SODIUM CHLORIDE 0.9% FLUSH 10 ML FLUSH IV FLUSH SCH (08:39)
[2017-09-05 08:59] VITALS: BP 141/69; PULSE 87; RESP 20; TEMP 98; O2SAT 97
[2017-09-05] MEDS ORDERED: NIFEdipine 60 MG SUSTAINED RELEASE TAB PO SCH (09:00)
--- NOTE | 2017-09-05 11:15 | HHI.DS ---
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 Diagnosis: Secondary Status: Acute (3) Fall ICD Code: W19.XXXA - Unspecified fall, initial encounter (4) HTN (hypertension) ICD Code: I10 - Essential (primary) hypertension Diagnosis: Secondary (5) Hypothyroidism ICD Code: E03.9 - Hypothyroidism, unspecified Diagnosis: Secondary Procedures None Brief History - From Admission 77 year-old female with past medical history of atrial fibrillation on chronic anticoagulation with Eliquis, hypertension, hypothyroidism, osteoarthritis who presented to [facility] emergency department after a fall in which she reportedly tripped over some uneven andrea. She fell forward and hit her face. There was loss of consciousness that was reportedly witnessed by her . She had some confusion that subsequently resolved. CT brain showed a 1.5 cm R temporal lobe intraparenchymal hemorrhage. She has a left upper lip laceration that has been repaired in the emergency department. She presented complaining of right wrist pain and left elbow pain. X-rays were negative for acute injury. Dr. Cordero discussed with trauma surgery who recommended admission to neurosurgery. Dr. Cordero discussed with Dr Riley who states he will see patient in consultation but recommends admission by sausage cutter. Patient is requesting pain meds for her chronic arthritis. Her last dose of Eliquis was 9 AM on 09/01/17. She received Kcentra 25 units/kg in the ED. CBC/BMP: 09/01/17201109/02/17 0503 Imaging Last Impressions Head CT 09/02/17 1543 Signed Impressions: Service Date/Time: Saturday, September 02, 2017 17:36 - CONCLUSION: Slight interval increase in the hemorrhage in the posterior right temporal lobe with apparent small hematoma now noted. Vance Briscoe MD Wrist X-Ray 09/01/[id number] Signed Impressions: Service Date/Time: Friday, September 01, 2017 21:06 - CONCLUSION: Significant degenerative changes, no fracture Freeman Manzano MD FACR Maxillofacial CT 09/01/172008 Signed Impressions: Service Date/Time: Friday, September 01, 2017 20:29 - CONCLUSION: Negative for fracture Freeman Manzano MD FACR Elbow X-Ray 09/01/172008 Signed Impressions: Service Date/Time: Friday, September 01, 2017 20:53 - CONCLUSION: Degenerative changes with small joint effusion. I cannot see the fracture. Freeman Manzano MD FACR Cervical Spine CT 09/01/172008 Signed Impressions: Service Date/Time: Friday, September 01, 2017 20:29 - CONCLUSION: Degenerative changes worse at C5-C6. No fracture Freeman Manzano MD FACR Pelvis X-Ray 09/01/172004 Signed Impressions: Service Date/Time: Friday, September 01, 2017 20:49 - CONCLUSION: Negative for fracture Freeman Manzano MD FACR Chest X-Ray 09/01/172004 Signed Impressions: Service Date/Time: Friday, September 01, 2017 20:44 - CONCLUSION: No acute disease. Freeman Manzano MD FACR PE at Discharge GENERAL: Alert, oriented 3, NAD. SKIN: Warm and dry. Laceration over left eyebrow. Slight redness on the left face. HEAD: Normocephalic. EYES: No scleral icterus. No injection or drainage. NECK: Supple, trachea midline. No JVD or lymphadenopathy. CARDIOVASCULAR: Regular rate and rhythm without murmurs, gallops, or rubs. RESPIRATORY: Breath sounds equal bilaterally. No accessory muscle use. GASTROINTESTINAL: Abdomen soft, non-tender, nondistended. MUSCULOSKELETAL: No cyanosis, or edema. BACK: Nontender without obvious deformity. No CVA tenderness. Pt update on day of discharge Patient is doing well. Sitting in her chair. No acute concerns. No chest pain, shortness of breath, fever, chills. Hospital Course Ms. Gonzalez is a 77 year-old female with past medical history of atrial fibrillation on chronic anticoagulation with Eliquis, hypertension, hypothyroidism, osteoarthritis who presented to [facility] emergency department after a fall in which she reportedly tripped over some uneven andrea. She fell forward and hit her face. There was loss of consciousness that was reportedly witnessed by her . She had some confusion that subsequently resolved. CT brain showed a 1.5 cm R temporal lobe intraparenchymal hemorrhage. She has a left upper lip laceration that has been repaired in the emergency department. Patient was evaluated by neurosurgery and admitted to the sausage cutter service. Repeat CT scan on 09/02/2017 shows slightly increased intracranial hemorrhage. Neurosurgery followed this patient closely. Acute mechanical fall Acute right posterior temporal intracranial hemorrhage CT scans reviewed. Neurosurgery cleared for discharge. Held pharmacological DVT prophylaxis including Eliquis, aspirin. physical therapy recommends home with no PT. Walker with front wheel walker recommended. Atrial fibrillation [id number] is likely 3 (female, age above 75). Continue to hold apixaban. Would recommend holding Apixaban for two weeks since ICH. This was also recommended by Neuorsurgery and consistent with literature review (uptodate). Consider apixaban 2.5 mg twice daily since patient is 58.3 kg and 77-year- old. It would be reasonable to start after 09/17/2017. Hypertension Change 12.5 mg twice daily. Increased nifedipine 60 mg daily with holding parameters. Patient is advised to monitor blood pressure after she is discharged. If blood pressure is persistently below 120, I have advised patient to take 1/2 of the pill for blood pressure. Patient received SCDs for DVT prophylaxis. Pt Condition on Discharge: Good Discharge Disposition: Discharge Home Discharge Time: > 30 minutes Discharge Instructions DIET: Follow Instructions for: Heart Healthy Diet Activities you can perform: Regular-No Restrictions Follow up Referrals: PCP Follow-up - 1 Week New Medications: Walker with Front Wheels (Walker with Front Wheels) 1 Mis Mis EA .XX DIRECTED, #1 0 Refills Nifedipine ER 24 HR (Nifedipine ER 24 HR) 60 Mg Tab 60 MG PO DAILY for Blood Pressure Management, #30 TAB 5 Refills Changed Medications: Apixaban (Eliquis) 5 Mg Tab 2.5 MG PO BID for Blood Clot Prevention, #60 TAB 0 Refills (Changed from: 5 MG) Start taking it after 09/17/2017. Continued Medications: Carvedilol (Carvedilol) 12.5 Mg Tab 12.5 MG PO DAILY for Blood Pressure Management, #60 TAB 11 Refills (This prescription has been renewed) Hydrocodone/Acetaminophen (Rhododendron 5-325 Tablet) 5 Mg-325 Mg Tablet 1 TAB PO BID for Pain Management, #20 TAB (This prescription has been renewed) Levothyroxine (Levothyroxine) 75 Mcg Tab 75 MCG PO DAILY for Thyroid, #30 TAB 11 Refills (This prescription has been renewed) Discontinued Medications: Alprazolam (Alprazolam) 0.25 Mg Tab 0.25 MG PO Q4H PRN for ANXIETY, TAB 0 Refills Angelique Forte DO Sep 05, 2017 11:15
[2017-09-05] MEDS ORDERED: LEVO75TA3 PO (11:23)
[2017-09-05] MEDS ORDERED: NORC5TAB PO (11:23)
[2017-09-05] MEDS ORDERED: CARV12.52 PO (11:23)
[2017-09-05 11:53] VITALS: BP 118/67; PULSE 80; RESP 20; TEMP 97.5; O2SAT 97
== END 2017-09-05 11:52 | disposition home or self-care (01) | DRG 87 ==
LOC: NEPC 19:26 → NEDA 22:02 → NEDH 09-02 02:29 → N03B 09-02 19:48 → N05A 09-03 17:59
PROVIDERS: ADMIT Hospitalist; ATTEND Hospitalist
PROC: 0CQ1XZZ Repair Lower Lip, External Approach (ICD-10-PCS; principal; 2017-09-01)
DX: S06.341A Traumatic hemorrhage of right cerebrum with loss of consciousness of 30 minutes or less, initial encounter (principal); I48.2 Chronic atrial fibrillation; S01.511A Laceration without foreign body of lip, initial encounter; I10 Essential (primary) hypertension; S00.12XA Contusion of left eyelid and periocular area, initial encounter; W01.0XXA Fall on same level from slipping, tripping and stumbling without subsequent striking against object, initial encounter; E03.9 Hypothyroidism, unspecified; M19.90 Unspecified osteoarthritis, unspecified site; Z96.652 Presence of left artificial knee joint; Z96.641 Presence of right artificial hip joint; F41.9 Anxiety disorder, unspecified; G89.29 Other chronic pain; E78.5 Hyperlipidemia, unspecified; M54.2 Cervicalgia; S40.022A Contusion of left upper arm, initial encounter; S40.021A Contusion of right upper arm, initial encounter; R07.89 Other chest pain; Z98.84 Bariatric surgery status; Z79.01 Long term (current) use of anticoagulants; Y92.511 Restaurant or cafe as the place of occurrence of the external cause
CPT/HCPCS: 12051; 70450; 70486; 71045; 72125; 72170; 73080; 73110; 80048; 80076; 81001; 82550; 83735; 83880; 84100; 84443; 84484; 85025; 85610; 85730; 86850; 86900; 86901; 90471; 90715; 93005; 94150; C9132; J0360; J2270; J2405; J3010; J3430; J7030